=== PATIENT | female | born 1940 | race Hispanic/Latino ===

== ENCOUNTER 2017-07-14 09:06 | Inpatient (IN) | payer OTHER ==
[2017-07-14] MEDS ORDERED: LEVALBUTEROL 1.25 MG/3 ML NEB ONE (10:11)
[2017-07-14 10:19] LABS: Absolute Lymphocytes (CBC) 0.6 K/uL (0.7-4.9); Absolute Monocytes 0.4 K/uL (0.1-1.3); Absolute Neutrophil 4.5 K/uL (1.8-8.0); Basophils % 0.3 % (0-1.3); Eosinophils % 0.5 % (0-4.4); Lymphocytes % 10.8 % (15.3-44.8); MCV 112.4 fL (80-100); MPV 9.8 fL (7.6-11.3); Monocytes % 6.6 % (3.3-12.3); RBC Red Blood Cell Count 3.02 M/uL (3.86-4.86)
[2017-07-14 10:22] LABS: Protime INR 1.06
[2017-07-14 10:31] LABS: Bicarbonate 24 mEq/L (21-31); Glucose Level 137 mg/dL (65-120); Potassium 4.4 mEq/L (3.6-5.0); Sodium Level 139 mEq/L (135-145)
[2017-07-14 10:37] LABS: ALT/SGPT 12 IU/L (10-60); AST/SGOT 17 IU/L (10-42); Albumin 2.8 g/dL (3.2-5.5); Alkaline Phosphatase 107 IU/L (42-121); BUN Blood Urea Nitrogen 61 mg/dL (6-20); Bilirubin Total 2.4 mg/dL (0.3-1.2); Creatine Phosphokinase 17 IU/L (22-269); Protein, Total 6.8 g/dL (6.0-8.3)
[2017-07-14 10:39] LABS: CKMB Creatine Kinase MB 1.5 ng/ml (0.3-4.0)
[2017-07-14 11:00] LABS: Blood Morphology Comment NOTED (NOT SEEN); Macrocytosis 2+; Platelet Estimate DECR; Urine White Blood Cell Casts OK
[2017-07-14 11:22] LABS: Folic Acid, (Folate) 9.4 ng/ml (>5.21)
--- NOTE | 2017-07-14 11:24 | RAD REPORT ---
EXAM DESCRIPTION: RAD - Chest Single View - 07/14/2017 10:43 am CLINICAL HISTORY: Cough, green sputum. COMPARISON: 06/15/2013 FINDINGS: Portable technique limits examination quality. A left pleural effusion is present. Ill-defined opacity left lung base is also likely present, suspic ious for pneumonia. The heart is moderately enlarged in size. Right-sided venous catheter is in the S VC. No displaced fractures. IMPRESSION: Left lung base pleural and parenchymal opacification, likely representing pneumonia.
--- NOTE | 2017-07-14 11:42 | ER ---
Nurse's Notes [facility] Name: Dilia Perez Age: 77 yrs Sex: Female : 1940 Arrival Date: 07/14/2017 Time: 09:12 Bed 16 Private MD: Diagnosis: Pneumonia due to other specified bacteria;Chronic kidney disease (CKD);Urinary tract infection, site not specified Presentation: 07/14 09:31 Presenting complaint: Patient states: Productive cough with green sputum, SOB, hb decreased appetite, and lethargy x 3 weeks. HD T-TH-Sat, last HD was >1 week ago due to illness. Transition of care: patient was not received from another setting of care. Care prior to arrival: None. 09:31 Method Of Arrival: Wheelchair hb 09:31 Acuity: ALPA 3 hb 10:33 Onset of symptoms was June 23, 2017 at 08:00. ae1 Historical: - Allergies: 09:34 No Known Allergies; hb - PMHx: 09:34 HD T-TH-Sat; hb - PSHx: 09:34 Cholecystectomy; hb - Immunization history:: Adult Immunizations up to date. - Social history:: Smoking status: Patient/guardian denies using tobacco. Screenin:34 Abuse screen: Denies threats or abuse. Nutritional screening: No deficits noted. ae1 Tuberculosis screening: No symptoms or risk factors identified. Fall Risk No fall in past 12 months (0 pts). Secondary diagnosis (15 points) weakness. IV access (20 points). Ambulatory Aid- Crutches/Cane/Walker (15 pts). Gait- Weak (10 pts.). Mental Status- Oriented to own ability (0 pts). Assessment: 10:30 General: Appears in no apparent distress. uncomfortable, Behavior is cooperative, ae1 anxious. Pain: Complains of pain in chest Aggravated by cough. Neuro: Level of Consciousness is awake, alert, obeys commands, Oriented to person, place, time, situation. Cardiovascular: Heart tones S1 S2 present Patient's skin is warm and dry. Rhythm is atrial fibrillation with rapid ventricular response. Respiratory: Airway is patent Respiratory effort is even, unlabored, shallow, Respiratory pattern is regular, symmetrical, Breath sounds with crackles bilaterally. Breath sounds with wheezes bilaterally. GI: Abdomen is round distended, Bowel sounds present X 4 quads. Reports nausea, Patient currently denies diarrhea, vomiting. : No signs and/or symptoms were reported regarding the genitourinary system. EENT: wears glasses. Derm: Skin is normal. Musculoskeletal: Reports Generalized weakness. 10:38 Reassessment: radiology at bedside obtaining chest x-ray. ae1 12:00 Reassessment: Patient appears in no apparent distress at this time. Patient and/or ae1 family updated on plan of care and expected duration. Pain level reassessed. Patient states feeling better. Respiratory: Airway is patent Respiratory effort is even, unlabored, Respiratory pattern is regular, symmetrical. 13:54 Reassessment: Patient does not wish to be admitted in the hospital, provider notified, ae1 provider at bedside discussing plan of care. 14:39 Reassessment: Called 2nd floor to call report, desk community youth secretary states receiving nurse is ae1 in a patient room and will call back. Will continue to monitor. 14:50 Reassessment: LAb at bedside obtaining additional blood draw. ae1 14:59 Reassessment: Called 2nd floor to give report, desk community youth secretary states receiving nurse, ae1 charge nurse and doctor are in a patient room and will call back. Will continue to monitor. 16:01 Reassessment: Report called to Matt receiving nurse. ae1 Vital Signs: 09:33 BP 103 / 83; Pulse 90; Resp 22; Temp 98.3; Pulse Ox 98% on R/A; Pain 0/10; hb 10:39 BP 107 / 91; Pulse 137; Resp 19; Pulse Ox 97% on R/A; ae1 12:35 BP 107 / 91; Pulse 93; Resp 19; Pulse Ox 97% on R/A; ae1 14:02 BP 92 / 63; Pulse 129; Resp 23; Pulse Ox 98% ; ae1 ED Course: 09:12 Patient arrived in ED. mr 09:28 Keron Mccallum, AMEENA is Primary Nurse. ae1 09:32 Etienne Keenan PA is PHCP. jr8 09:32 Edwin Boucher MD is Attending Physician. jr8 09:32 Triage completed. hb 09:33 Arm band placed on right wrist. hb 09:45 Inserted saline lock: 24 gauge in right hand, using aseptic technique. Blood collected. ae1 10:23 EKG done, by safety technician. reviewed by Etienne OLIVEIRA. at1 10:33 Placed in gown. Bed in low position. Call light in reach. Side rails up X2. Adult w/ ae1 patient. monitoring and evaluation advisor on. Pulse ox on. NIBP on. Warm blanket given. 10:40 X-ray completed. Portable x-ray completed in exam room. Patient tolerated procedure sw well. 10:42 XRAY Chest (1 view) In Process Unspecified. EDMS 11:41 Latoya Gilmore MD is Hospitalizing Provider. jr8 12:45 Urine Culture Sent. ap3 12:45 Urine Microscopic Only Sent. ap3 16:02 No provider procedures requiring assistance completed. Patient admitted, IV remains in ae1 place. Administered Medications: 10:15 Drug: Xopenex (3) 1.25 mg Route: Inhalation; ae1 12:32 Drug: LevaQUIN 500 mg Volume: 100 ml; Route: IVPB; Infused Over: 60 mins; Site: right ae1 hand; 14:06 Follow up: IV Status: Completed infusion ae1 Outcome: 11:42 Decision to Hospitalize by Provider. jr8 16:02 Admitted to Med/surg accompanied by tech, family with patient, via wheelchair, room ae1 220, with chart, Report called to Matt, receiving nurse. 16:02 Condition: stable 16:02 Instructed on follow up and referral plans. the need for admit, Demonstrated understanding of instructions. 16:10 Patient left the ED. ae1 Signatures: Dispatcher [employer] [facility] Ashley Zhou Etienne Coley PA PA jr8 Danitza messer, automatic dispenser mechanic EKG Tat1 Nallely Arteaga Heather, AMEENA RN Keron Mccallum RN RN ae1 Danitza Bonilla ap3 Corrections: (The following items were deleted from the chart) 09:33 09:31 Presenting complaint: Patient states: Productive cough, SOB, decreased appetite, hb and lethargy x 3 weeks. HD T-TH-Sat, last HD was >1 week ago due to illness hb 14:31 14:07 Reassessment: Per provider, ok to cancel type and screen, labels molder notified via ae1 telephone that TS is cancelled. ae1
--- NOTE | 2017-07-14 11:43 | EDPHYS ---
Physician Documentation [facility] Name: Dilia Perez Age: 77 yrs Sex: Female : 1940 Arrival Date: 07/14/2017 Time: 09:12 Bed 16 Private MD: ED Physician Edwin Boucher HPI: 07/14 10:16 This 77 yrs old Female presents to ER via Wheelchair with complaints of jr8 Congestion, Productive Cough. 10:16 The patient or guardian reports cough, that is intermittent, described as moderate, jr8 with productive sputum, that is green. Onset: The symptoms/episode began/occurred gradually, 3 week(s) ago. Severity of symptoms: At their worst the symptoms were moderate, in the emergency department the symptoms are unchanged. Associated signs and symptoms: Pertinent positives: nausea, fatigue. The patient has not experienced similar symptoms in the past. The patient has not recently seen a physician. Family stated that three weeks ago she had influenza. Since then has continued productive cough. Now not eating well and more fatigued. ESRD with dialysis almost a week ago. Came from [facility] to [place] and needs to establish care . Historical: - Allergies: 09:34 No Known Allergies; hb - PMHx: 09:34 HD T-TH-Sat; hb - PSHx: 09:34 Cholecystectomy; hb - Immunization history:: Adult Immunizations up to date. - Social history:: Smoking status: Patient/guardian denies using tobacco. ROS: 10:16 Eyes: Negative for injury, pain, redness, and discharge, ENT: Negative for injury, jr8 pain, and discharge, Neck: Negative for injury, pain, and swelling, Cardiovascular: Negative for chest pain, palpitations, and edema, Back: Negative for injury and pain, MS/Extremity: Negative for injury and deformity, Skin: Negative for injury, rash, and discoloration, Neuro: Negative for headache, weakness, numbness, tingling, and seizure. 10:16 Respiratory: Positive for cough, with green sputum, shortness of breath. 10:16 Abdomen/GI: Positive for nausea, Negative for abdominal pain, vomiting, diarrhea, constipation, abdominal cramps, abdominal distension, anorexia, dysphagia, hematemesis, black/tarry stool, rectal pain, rectal bleeding, bowel incontinence, flatulence. Exam: 10:16 Eyes: Pupils equal round and reactive to light, extra-ocular motions intact. Lids and jr8 lashes normal. Conjunctiva and sclera are non-icteric and not injected. Cornea within normal limits. Periorbital areas with no swelling, redness, or edema. ENT: Nares patent. No nasal discharge, no septal abnormalities noted. Tympanic membranes are normal and external auditory canals are clear. Oropharynx with no redness, swelling, or masses, exudates, or evidence of obstruction, uvula midline. Mucous membranes moist. Neck: Trachea midline, no thyromegaly or masses palpated, and no cervical lymphadenopathy. Supple, full range of motion without nuchal rigidity, or vertebral point tenderness. No Meningismus. Abdomen/GI: Soft, non-tender, with normal bowel sounds. No distension or tympany. No guarding or rebound. No evidence of tenderness throughout. Back: No spinal tenderness. No costovertebral tenderness. Full range of motion. Skin: Warm, dry with normal turgor. Normal color with no rashes, no lesions, and no evidence of cellulitis. MS/ Extremity: Pulses equal, no cyanosis. Neurovascular intact. Full, normal range of motion. Neuro: Awake and alert, GCS 15, oriented to person, place, time, and situation. Cranial nerves II-XII grossly intact. Motor strength 5/5 in all extremities. Sensory grossly intact. Cerebellar exam normal. Normal gait. 10:16 Cardiovascular: Rate: normal, Rhythm: irregularly irregular, Pulses: Pulses are 2+ in right radial artery and left radial artery. Heart sounds: normal, normal S1and S2, no S3 or S4, no murmur, no rub, no gallop, Edema: 2+ edema to level of left midcalf, left ankle, left foot, right midcalf, right ankle and right foot, JVD: is not appreciated. 10:16 Respiratory: the patient does not display signs of respiratory distress, Respirations: normal, symetrical, no use of accessory muscles, no grunting, no evidence of nasal flaring, no prolonged exhalations, no pursed lip breathing, no retractions, no shallow respirations, no splinting, no tachypnea, Breath sounds: decreased breath sounds, that are mild, are located in both bases. Vital Signs: 09:33 BP 103 / 83; Pulse 90; Resp 22; Temp 98.3; Pulse Ox 98% on R/A; Pain 0/10; hb 10:39 BP 107 / 91; Pulse 137; Resp 19; Pulse Ox 97% on R/A; ae1 12:35 BP 107 / 91; Pulse 93; Resp 19; Pulse Ox 97% on R/A; ae1 14:02 BP 92 / 63; Pulse 129; Resp 23; Pulse Ox 98% ; ae1 MDM: 09:32 Patient medically screened. jr8 11:41 Data reviewed: vital signs, nurses notes, lab test result(s), EKG, radiologic studies, jr8 plain films, and as a result, I will admit patient. Data interpreted: Pulse oximetry: on room air is 97 %. Interpretation: normal. Counseling: I had a detailed discussion with the patient and/or guardian regarding: the historical points, exam findings, and any diagnostic results supporting the discharge/admit diagnosis, lab results, radiology results, the need for further work-up and treatment in the hospital. 07/14 09:54 Order name: Basic Metabolic Panel; Complete Time: 11:31 07/14 09:54 Order name: BNP; Complete Time: 10:42 07/14 09:54 Order name: CBC with Diff; Complete Time: 11:11 07/14 09:54 Order name: Ckmb; Complete Time: 11:31 07/14 09:54 Order name: CPK; Complete Time: 11:31 07/14 09:54 Order name: LFT's; Complete Time: 11:31 07/14 09:54 Order name: Magnesium; Complete Time: 11:31 07/14 09:54 Order name: PT-INR; Complete Time: 10:37 07/14 09:54 Order name: Ptt, Activated; Complete Time: 10:37 07/14 09:54 Order name: Troponin (emerg Dept Use Only); Complete Time: 10:37 07/14 09:54 Order name: Blood Culture Adult (2) 07/14 10:20 Order name: CBC Smear Scan; Complete Time: 11:11 [facility] 07/14 10:40 Order name: LAB Add On 07/14 10:44 Order name: Folic Acid, Serum (Folate); Complete Time: 11:31 [facility] 07/14 09:54 Order name: XRAY Chest (1 view); Complete Time: 11:31 [facility] 07/14 09:54 Order name: EKG; Complete Time: 09:55 07/14 09:54 Order name: Cardiac monitoring; Complete Time: 10: 07/14 09:54 Order name: EKG - Nurse/Tech; Complete Time: 10: [facility] 07/14 09:54 Order name: IV Saline Lock; Complete Time: 10:29 [facility] 07/14 09:54 Order name: Labs collected and sent; Complete Time: 10: [facility] 07/14 09:54 Order name: O2 Per Protocol; Complete Time: 10: [facility] 07/14 09:54 Order name: O2 Sat Monitoring; Complete Time: : [facility] 07/14 09:54 Order name: Urine Dipstick-Ancillary (obtain specimen); Complete Time: 12:35 [facility] 07/14 10:44 Order name: Vitamin B12 Level; Complete Time: 11:31 [facility] 07/14 12:33 Order name: Urine Microscopic Only; Complete Time: 13:09 [facility] 07/14 12:33 Order name: Urine Culture [facility] 07/14 12:37 Order name: Urine Dipstick--Ancillary (enter results); Complete Time: 12:47 ag Administered Medications: 10:15 Drug: Xopenex (3) 1.25 mg Route: Inhalation; ae1 12:32 Drug: LevaQUIN 500 mg Volume: 100 ml; Route: IVPB; Infused Over: 60 mins; Site: right ae1 hand; 14:06 Follow up: IV Status: Completed infusion ae1 Disposition: 17:58 Co-signature as Attending Physician, Edwin Boucher MD. rn Disposition: 07/14/17 11:42 Hospitalization ordered by Latoya Gilmore for Inpatient Admission. Preliminary diagnosis are Pneumonia due to other specified bacteria, Chronic kidney disease (CKD), Urinary tract infection, site not specified. - Bed requested for Telemetry/MedSurg (Inpatient). - Status is Inpatient Admission. ae1 - Condition is Stable. - Problem is new. - Symptoms have improved. UTI on Admission? Yes Signatures: Dispatcher [employer] [facility] Edwin Boucher MD MD rn Roszak, Josh, PA PA jr8 Antoinette Hunter Heather, RN RN hb Keron Mccallum, RN RN ae1
[2017-07-14] MEDS ORDERED: Levofloxacin500mg IV 500 MG/100 ML BAG IV ONE (11:55)
[2017-07-14 12:47] LABS: Urine Blood 1+ (NEG); Urine Glucose TRACE (NEG); Urine Protein 2+ (NEG); Urine Specific Gravity 1.015 (1.005-1.030); Urine pH 5.5 (5.0-7.0)
[2017-07-14 12:58] LABS: Urine Bacteria LOADED /HPF (<20); Urine Culture Reflex Order NOT NEEDED; Urine RBC >50 /HPF (NONE SEEN); Urine White Blood Cell Casts 0-5 /LPF (NONE SEEN)
[2017-07-14] MEDS ORDERED: ACETAMINOPHEN 500 MG TAB PO PRN (13:34)
[2017-07-14] MEDS ORDERED: ONDANSETRON 4 MG (ODT) TAB PO PRN (13:34)
[2017-07-14] MEDS ORDERED: MANNITOL 25% 12.5 GM/50 ML VIAL IV PRN (15:15)
[2017-07-14] MEDS ORDERED: NA CHLORIDE 0.9% 1,000 ML IV PRN (15:15)
[2017-07-14] MEDS ORDERED: ALBUMIN HUMAN 25% 50 ML IV SCH (16:00)
[2017-07-14] MEDS ORDERED: METHYLPREDNISOLONE 125 MG INJ ONE (16:14)
[2017-07-14] MEDS ORDERED: IPRATROPIUM BROM 0.5MG/2.5ML ONE (16:15)
[2017-07-14] MEDS ORDERED: ALBUTEROL 2.5 MG/3 ML NEB SOL ONE (16:15)
[2017-07-14 16:30] LABS: Thyroid Stimulating Hormone 5.79 uIU/mL (0.34-5.60)
--- NOTE | 2017-07-14 16:57 | P.HP ---
Certification for Inpatient Patient admitted to: Inpatient With expected LOS: >2 Midnights Patient will require the following post-hospital care: None Practitioner: I am a practitioner with admitting privileges, knowledge of patient current condition, hospital course, and medical plan of care. Services: Services provided to patient in accordance with Admission requirements found in Title 42 Section 412.3 of the Code of Federal Regulations Patient History Date of Service: 07/14/17 Primary Care Provider: OOT Reason for admission: Fatigue and weakness History of Present Illness: The all this is a 77-year-old female with significant past medical history of hypertension and end-stage renal disease on hemodialysis Thursday who presented to the ED complaining of increased fatigue and weakness for total of 3 weeks. Pt had symptoms of flu 3 weeks ago. Pt states her symptoms got progressively worse where she now has productive cough. It is yellow in color. Pt has not had dialysis since last and states she was unable to go to fatigue and tiredness. Patient at this time denies having any fever chills nausea or vomiting. Aside from the above-mentioned symptoms she does not have a complaints to offer. In the ER patient was found to have a BNP of 13 39 with elevated white count and left shift. X-ray was done which was consistent with bilateral lower lobe opacification consistent with pneumonia. Patient also had elevated creatinine this patient was referred for admission to the hospital for pneumonia and end- stage renal disease. Allergies No Known Allergies Allergy (Unverified 06/16/13 00:09) Home Medications: Furosemide [Lasix] 20 mg PO DAILY 07/14/17 Pantoprazole [Protonix Tab*] 40 mg PO DAILY 07/14/17 Ramelteon [Rozerem] 8 mg PO BEDTIME 07/14/17 - Past Medical/Surgical History Diabetic: No -: UTI -: HTN -: LEIGHA -: HERNIA REPAIR - Social History Alcohol use: No CD- Drugs: No Caffeine use: Yes Review of Systems 10-point ROS is otherwise unremarkable Physical Examination - Vital Signs Temperature: 98.3 F Blood Pressure: 92/63 Pulse: 129 Respirations: 23 - Physical Exam General: Alert, In no apparent distress, Mild distress HEENT: Atraumatic Neck: Supple Respiratory: Normal air movement, Crackles/rales, Rhonchi/gurgles Cardiovascular: Regular rate/rhythm, Normal S1 S2 Gastrointestinal: Normal bowel sounds, Soft and benign, Non-distended, No tenderness Musculoskeletal: No tenderness Integumentary: No rashes Neurological: Normal speech, Normal strength at 5/5 x4 extr, Normal tone Lymphatics: No axilla or inguinal lymphadenopathy - Studies Laboratory Data (last 24 hrs) 07/14/17 09:55: PT 12.5, INR 1.06, APTT 32.6 07/14/17 09:55: WBC 5.5, Hgb 10.9 L, Hct 34.0 L, Plt Count 95 L 07/14/17 09:55: B-Natriuretic Peptide 1339 H 07/14/17 09:55: Sodium 139, Potassium 4.4, BUN 61 H, Creatinine 6.61 H*, Glucose 137 H, Magnesium 2.0, Total Bilirubin 2.4 H, AST 17, ALT 12, Alkaline Phosphatase 107 Assessment and Plan - Problems (Diagnosis) (1) PNA (pneumonia) Current Visit: Yes Status: Acute Plan: PNA on the xray with productive cough -Started on IV abx, Oxygen and fluids at this time -Repeat xray in the AM Qualifiers: Pneumonia type: due to unspecified organism Laterality: bilateral Lung location: unspecified part of lung Qualified Code(s): J18.9 - Pneumonia, unspecified organism (2) Volume overload Current Visit: Yes Status: Acute Plan: Most Likely 2/2 to Missed dialysis -Nephrology Consulted. -Will dialyze pt today -Will F/U post dialysis Qualifiers: Hypervolemia type: other Qualified Code(s): E87.79 - Other fluid overload (3) ESRD (end stage renal disease) Current Visit: Yes Status: Chronic Plan: Usually gets Dialysis , and Thursday in the [place] (4) HTN (hypertension) Current Visit: Yes Status: Chronic Qualifiers: Hypertension type: essential hypertension Qualified Code(s): I10 - Essential (primary) hypertension (5) Congestive heart failure Current Visit: No Status: Chronic Plan: Currently on Dialysis -Will restart home medication as well. (6) Diabetes mellitus type 2 Current Visit: No Status: Chronic Plan: ISS Discharge Plan: Home Plan to discharge in: 48 Hours - Advance Directives Does patient have a Living Will: No Does patient have a Durable POA for Healthcare: No - Code Status/Comfort Care Code Status Assessed: Yes Critical Care: No
[2017-07-14] MEDS ORDERED: PNEUMOCOCCAL VACCINE 0.5 ML IMVAC ONE (18:00)
[2017-07-14] MEDS: RAMELTEON 8 MG PO SCH (21:00)
[2017-07-14] MEDS ORDERED: Levofloxacin 250mg IV 250 MG/50 ML BAG IV SCH (22:00)
--- NOTE | 2017-07-15 03:42 | CON ---
Date of Consultation: 07/14/2017 Additional Consulting Physician: Dr. Gilmore. Reason For Consultation: Elevated BUN and creatinine, over volume, end-stage renal disease. History Of Present Illness: This is a pleasant 77-year-old female, well known to me from previous ad mission with significant past medical history of hypertension, hyperlipidemia, end-stage renal diseas e, on hemodialysis, patient apparently had been coming to visit her daughter to live with them and last dialysis was . The patient missed her Thursday. The patient denied any nausea and vomiting, but complaining of cough and shortness of breath. For that reason, reported to the ER and the ER found to have possible pneumonia and the patient missed her dialysis for that reason, we have been consulted. The patient does not have any fever. No chills. Past Medical History: Include, 1.Hypertension. 2.Hyperlipidemia. Social History: Denies smoking, denies drinking, denies drug abuse. Past Surgical History: Include PermCath placement. Family History: Positive for hypertension. Allergies: NO KNOWN DRUGS ALLERGY. Review of Systems: Head and Neck: No red eye. No ear pain. GI: No nausea, no vomiting. : No polyuria. No dysuria. No hematuria. Still have good urine output. 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 Respiratory: Has shortness of breath. Has cough. Cardiovascular: No chest pain. Neurologic: No weakness. Musculoskeletal: No joint pain. Endocrine: No polydipsia. Physical Examination: Vital Signs: Blood pressure 92/63, pulse of 110, afebrile. Chest: Crackles bilateral base. Heart: S1, S2. Regular. Abdomen: Soft, nontender. Extremities: No edema. Laboratory Data: WBC 5.5, H and H 10.9/34, platelets of 95. Sodium 139, potassium 4.4, bicarb 24, B UN 60, creatinine 6.6, calcium 8.8. Magnesium of 2. Culture still pending. Current Medications: At home include, 1.Pantoprazole. 2.Rozerem. 3.Lasix. Hospital medications include, 1.Levaquin. 2.Lasix. 3.Pantoprazole. Assessment And Plan: 1.End-stage renal disease. We will arrange for dialysis today. We will dialyze on 2 K bath and gio l challenge. 2.Hypertension, controlled. Optimal off all blood pressure medication. We will monitor. 3.Pneumonia. I agreed with the Levaquin. I am going to change the dose to 250 giving the dialysis history and we will follow up. Case discussed with the patient and family by bedside, verbalized und erstanding. Discussed with Dr. Gilmore. Thank you, Dr. Gilmore for allowing us to participate in the care of your patient. COLE Voice ID: [id number] Report ID: [id number]
[2017-07-15 05:06] LABS: Absolute Lymphocytes (CBC) 0.3 K/uL (0.7-4.9); Absolute Monocytes 0.5 K/uL (0.1-1.3); Absolute Neutrophil 2.8 K/uL (1.8-8.0); Basophils % 0.3 % (0-1.3); Eosinophils % 0.9 % (0-4.4); Hematocrit 29.9 % (36.0-45.0); Lymphocytes % 9.2 % (15.3-44.8); MPV 7.8 fL (7.6-11.3); Monocytes % 12.5 % (3.3-12.3); RBC Red Blood Cell Count 2.71 M/uL (3.86-4.86)
[2017-07-15 05:09] LABS: MCV 110.2 fL (80-100)
[2017-07-15 05:30] LABS: Albumin 2.2 g/dL (3.2-5.5); Bilirubin Total 1.8 mg/dL (0.3-1.2); Magnesium 1.7 mg/dL (1.8-2.5); Potassium 4.4 mEq/L (3.6-5.0); Protein, Total 5.6 g/dL (6.0-8.3)
[2017-07-15] MEDS ORDERED: MAGNESIUM SULFATE 1 gm IVPB 1 GM/100 ML BAG IV ONE (06:02)
[2017-07-15] MEDS: PANTOPRAZOLE 40MG TABLET PO SCH (07:30)
--- NOTE | 2017-07-15 08:02 | EKG ---
Test Date: 2017-07-14 Test Time: 10:11:09 Latexer: MALKA MEASUREMENT RESULTS: Intervals: Rate: 125 GA: QRSD: 90 QT: 368 QTc: 531 Reading: P: GA: QRS: -20 T: 113 INTERPRETIVE STATEMENTS: Atrial fibrillation with rapid ventricular response Low voltage QRS Nonspecific ST and T wave abnormality, probably digitalis effect Abnormal ECG Compared to ECG 06/15/2013 03:49:23 Low QRS voltage now present ST (T wave) deviation now present Myocardial infarct finding no longer present Electronically Signed On 07-15-17 08:02:07 CDT by Iban Nina
[2017-07-15] MEDS: FUROSEMIDE 20 MG TABLET PO SCH (08:49)
--- NOTE | 2017-07-15 08:53 | RAD REPORT ---
EXAM DESCRIPTION: RAD - Chest Pa And Lat (2 Views) - 07/15/2017 6:40 am CLINICAL HISTORY: Chest pain, pneumonia COMPARISON: 07/14/2017, 06/15/2013 FINDINGS: Diffuse COPD is present. Small left pleural effusion is noted. The heart is significantly enlarged in size. Right-sided venous catheter tip in the SVC. IMPRESSION: Moderate cardiomegaly with small left pleural effusion. COPD.
[2017-07-15] MEDS ORDERED: EPOETIN ALFA 10,000 UNIT/ML VIAL IV SCH (10:00)
[2017-07-15] MEDS ORDERED: IPRATROPIUM BROM 0.5MG/2.5ML NEB PRN (10:49)
[2017-07-15] MEDS ORDERED: ALBUTEROL 2.5 MG/3 ML NEB SOL NEB PRN (10:49)
--- NOTE | 2017-07-15 10:49 | P.PN ---
Subjective Date of Service: 07/15/17 Primary Care Provider: DUANE Chief Complaint: Fatigue and weakness Patient seen and examined at bedside with RN. Chart reviewed. Case discussed with nephrology. Currently patient has no complaints to offer overnight. Has been feeling well. Had dialysis yesterday. Review of Systems 10-point ROS is otherwise unremarkable Physical Examination - Vital Signs Temperature: 97.5 F Blood Pressure: 92/54 Pulse: 112 Respirations: 16 Pulse Ox (%): 92 - Physical Exam General: Alert, In no apparent distress, Oriented x3 HEENT: Atraumatic, PERRLA, EOMI Neck: Supple, JVD not distended Respiratory: Clear to auscultation bilaterally, Normal air movement Cardiovascular: Regular rate/rhythm, Normal S1 S2 Gastrointestinal: Normal bowel sounds, No tenderness Musculoskeletal: No tenderness Integumentary: No rashes Neurological: Normal speech, Normal tone, Normal affect Lymphatics: No axilla or inguinal lymphadenopathy - Studies Laboratory Data (last 24 hrs) 07/14/17 09:55: Creatinine 6.61 H* Microbiology Data (last 24 hrs): 07/14/17 09:55 Blood - Blood Anaerobic Blood Culture - Final 07/14/17 10:20 Blood - Blood Anaerobic Blood Culture - Final Medications List Reviewed: Yes Assessment & Plan - Problems (Diagnosis) (1) UTI (urinary tract infection) Current Visit: Yes Status: Acute Plan: UA with Numerous Bacteria -Currently on Levaquin. -Will continue till cultures -Culture growing Gram - Rods thus far Qualifiers: Urinary tract infection type: acute cystitis Hematuria presence: without hematuria Qualified Code(s): N30.00 - Acute cystitis without hematuria (2) PNA (pneumonia) Onset Date: 07/15/17 Current Visit: Yes Status: Acute Plan: PNA on the xray with productive cough. Improved markedly today -On IV levaquin -Oxygen and Duonebs -Xray with COPD and chronic changes. -Culture Pending. Qualifiers: Pneumonia type: due to unspecified organism Laterality: bilateral Lung location: unspecified part of lung Qualified Code(s): J18.9 - Pneumonia, unspecified organism (3) Volume overload Onset Date: 07/15/17 Current Visit: Yes Status: Acute Plan: Most Likely 2/2 to Missed dialysis -Nephrology Consulted. -On Dialysis now. -BNP improving. Qualifiers: Hypervolemia type: other Qualified Code(s): E87.79 - Other fluid overload (4) ESRD (end stage renal disease) Onset Date: 07/15/17 Current Visit: Yes Status: Chronic Plan: Usually gets Dialysis and Thursday in the [place] (5) HTN (hypertension) Onset Date: 07/15/17 Current Visit: Yes Status: Chronic Qualifiers: Hypertension type: essential hypertension Qualified Code(s): I10 - Essential (primary) hypertension (6) Congestive heart failure Onset Date: 07/15/17 Current Visit: No Status: Chronic Plan: Currently on Dialysis -Will restart home medication as well. (7) Diabetes mellitus type 2 Onset Date: 07/15/17 Current Visit: No Status: Chronic Plan: ISS
[2017-07-15] MEDS ORDERED: Levofloxacin 750mg IV 750 MG/150 ML BAG IV SCH (12:00)
--- NOTE | 2017-07-15 19:00 | PN ---
Date of Progress Note: 07/15/2017 Subjective: The patient still complaining from cough and shortness of breath status post dialysis. Yesterday tolerated the dialysis. We managed to remove 2 L. The patient had a poor appetite. Physical Examination: Vital Signs: When I saw the patient, blood pressure 92/54, pulse of 111. Chest: Crackles on the base. Heart: S1, S2. Regular. Abdomen: Soft, nontender. Extremities: No edema. Laboratory Data: WBC 3.6, H and H 9.8/29.9, platelet of 60. Sodium 137, potassium 4.4, bicarb 28, B UN 24, creatinine 3.4. Calcium 8.3, phosphorus of 3, magnesium 1.7. TSH 5.7. Medications: Current medications the patient on include: Levaquin 250 daily, albuterol, heparin, Tylenol, Lasix 20 p.o. daily, ipratropium. Assessment And Plan: 1.End-stage renal disease. Currently normal volume. I am going to continue dialysis, TTS. 2.Secondary hyperparathyroidism, stable. Calcium and phosphorus on the goal. We will continue to m onitor. 3.Hypothyroidism. I will start the patient on levothyroxine. 4.Anemia of chronic kidney disease. Start the patient on Epogen. 5.Bronchitis/pneumonia. Continue Levaquin. We will follow up with culture. COLE Voice ID: [id number] Report ID: [id number]
[2017-07-15] MEDS: RAMELTEON 8 MG PO SCH (21:32)
[2017-07-16 05:38] LABS: Absolute Lymphocytes (CBC) 0.5 K/uL (0.7-4.9); Absolute Monocytes 0.3 K/uL (0.1-1.3); Absolute Neutrophil 2.2 K/uL (1.8-8.0); Basophils % 0.5 % (0-1.3); Eosinophils % 0.8 % (0-4.4); Hematocrit 29.5 % (36.0-45.0); Lymphocytes % 15.4 % (15.3-44.8); MCH 36.4 pg (27.0-35.0); MPV 9.2 fL (7.6-11.3); Monocytes % 11.2 % (3.3-12.3)
[2017-07-16 05:40] LABS: MCV 113.1 fL (80-100)
[2017-07-16] MEDS: LEVOTHYROXINE SOD 0.125 MG TAB PO SCH (05:56)
[2017-07-16 06:15] LABS: Albumin 2.2 g/dL (3.2-5.5); Bilirubin Total 1.3 mg/dL (0.3-1.2); Magnesium 2.1 mg/dL (1.8-2.5); Phosphorus 4.2 mg/dL (2.5-4.3); Potassium 4.8 mEq/L (3.6-5.0); Protein, Total 5.3 g/dL (6.0-8.3)
--- NOTE | 2017-07-16 07:25 | RAD REPORT ---
EXAM DESCRIPTION: Jason Pa And Lat (2 Views)07/16/2017 6:47 am CLINICAL HISTORY: Cough COMPARISON: July 15, 2017 FINDINGS: A small left pleural effusion is unchanged. Mild left basilar opacities are stable. The r ight lung appears clear. The heart remains enlarged. A central venous catheter has its tip in the sup erior vena cava IMPRESSION: No change in mild left basilar opacities which may represent pneumonia
[2017-07-16] MEDS ORDERED: Meropenem 500 MG VIAL IV SCH (09:00)
[2017-07-16] MEDS: Meropenem 500 MG in NA CHLORIDE 0.9% 100 ML IV SCH (09:20)
[2017-07-16] MEDS: FUROSEMIDE 20 MG TABLET PO SCH (09:21)
[2017-07-16] MEDS: PANTOPRAZOLE 40MG TABLET PO SCH (09:21)
[2017-07-16 11:55] LABS: HBsAG Nonreactive (Nonreactive)
--- NOTE | 2017-07-16 15:33 | P.PN ---
Subjective Date of Service: 07/16/17 Primary Care Provider: DUANE Chief Complaint: Fatigue and weakness Patient seen and examined at bedside with RN. Chart reviewed. Case discussed with nephrology. Currently patient has no complaints to offer overnight. Has been feeling well. Had dialysis today. Is growing ESBL in the urine. Review of Systems 10-point ROS is otherwise unremarkable Physical Examination - Vital Signs Temperature: 97.0 F Blood Pressure: 91/66 Pulse: 90 Respirations: 18 Pulse Ox (%): 100 - Physical Exam General: Alert, In no apparent distress, Oriented x3 HEENT: Atraumatic, PERRLA, EOMI Neck: Supple, JVD not distended Respiratory: Clear to auscultation bilaterally, Normal air movement Cardiovascular: Regular rate/rhythm, Normal S1 S2 Gastrointestinal: Normal bowel sounds, No tenderness Musculoskeletal: No tenderness Integumentary: No rashes Neurological: Normal speech, Normal tone, Normal affect Lymphatics: No axilla or inguinal lymphadenopathy - Studies Microbiology Data (last 24 hrs): 07/14/17 10:20 Blood - Blood Anaerobic Blood Culture - Final Medications List Reviewed: Yes Assessment & Plan - Problems (Diagnosis) (1) UTI (urinary tract infection) Current Visit: Yes Status: Acute Plan: UA with Numerous Bacteria -Culture + for ESBL now -On meropenem -Central line for IV abx at home. Okay per Nephrology Qualifiers: Urinary tract infection type: acute cystitis Hematuria presence: without hematuria Qualified Code(s): N30.00 - Acute cystitis without hematuria (2) PNA (pneumonia) Onset Date: 07/15/17 Current Visit: Yes Status: Acute Plan: PNA on the xray with productive cough. Improved markedly today -Oxygen and Duonebs -Xray with COPD and chronic changes. -Culture Pending. Qualifiers: Pneumonia type: due to unspecified organism Laterality: bilateral Lung location: unspecified part of lung Qualified Code(s): J18.9 - Pneumonia, unspecified organism (3) Volume overload Onset Date: 07/15/17 Current Visit: Yes Status: Acute Plan: Most Likely 2/2 to Missed dialysis -Nephrology Consulted. -On Dialysis now. -BNP improving. Qualifiers: Hypervolemia type: other Qualified Code(s): E87.79 - Other fluid overload (4) ESRD (end stage renal disease) Onset Date: 07/15/17 Current Visit: Yes Status: Chronic Plan: [place] gets D[place] , [place] (5) HTN (hypertension) Onset Date: 07/15/17 Current Visit: Yes Status: Chronic Qualifiers: Hypertension type: essential hypertension Qualified Code(s): I10 - Essential (primary) hypertension (6) Congestive heart failure Onset Date: 07/15/17 Current Visit: No Status: Chronic Plan: Currently on Dialysis -Will restart home medication as well. (7) Diabetes mellitus type 2 Onset Date: 07/15/17 Current Visit: No Status: Chronic Plan: ISS
[2017-07-16] MEDS ORDERED: DIGOXIN 0.25 MG/ML AMP IV SCH (16:00)
--- NOTE | 2017-07-16 16:34 | PN ---
Date of Progress Note: 07/16/2017 Subjective: The patient's shortness of breath has been subsided significantly. No nausea. No vomit ing. Objective: Vital Signs: When I saw the patient, blood pressure 108/76, pulse of 90, afebrile. Chest: Clear to auscultation. Heart: S1, S2. Regular. Abdomen: Soft. Nontender. Extremity: No edema. Laboratory Data: WBC 3, H and H 9.5/29.5, platelets 67. Sodium 137, potassium 4.8, bicarb 27, BUN 3 2, creatinine 4.6, calcium 8.5, phosphorus 4.2, magnesium 2.1. Current culture growing Klebsiella in the urine and growing ESBL in the blood. Assessment And Plan: 1.End-stage renal disease. Normal volume. We will the patient is going to be scheduled for dialysi s today. We will follow up. 2.Hypertension, controlled, optimal. Continue current medication. 3.Urinary tract infection, Klebsiella. The patient was started on meropenem. The patient is going to need central line. I am okay with that for treatment. 4.Anemia. We will continue FARAZ for the time being. 5.Pneumonia. Continue current antibiotic. COLE Voice ID: [id number] Report ID: [id number]
[2017-07-16] MEDS: RAMELTEON 8 MG PO SCH (20:12)
[2017-07-17] MEDS: LEVOTHYROXINE SOD 0.125 MG TAB PO SCH (05:06)
[2017-07-17 05:31] LABS: Absolute Lymphocytes (CBC) 0.4 K/uL (0.7-4.9); Absolute Monocytes 0.2 K/uL (0.1-1.3); Absolute Neutrophil 1.3 K/uL (1.8-8.0); Basophils % 0.5 % (0-1.3); Eosinophils % 1.2 % (0-4.4); Hematocrit 28.8 % (36.0-45.0); Lymphocytes % 22.1 % (15.3-44.8); MCH 36.2 pg (27.0-35.0); MCV 109.4 fL (80-100); MPV 7.7 fL (7.6-11.3); Monocytes % 12.1 % (3.3-12.3); RBC Red Blood Cell Count 2.63 M/uL (3.86-4.86)
[2017-07-17 06:01] LABS: Albumin 2.3 g/dL (3.2-5.5); Bilirubin Total 1.4 mg/dL (0.3-1.2); Phosphorus 4.1 mg/dL (2.5-4.3); Potassium 4.6 mEq/L (3.6-5.0); Protein, Total 5.6 g/dL (6.0-8.3)
--- NOTE | 2017-07-17 07:31 | RAD REPORT ---
EXAM DESCRIPTION: RAD - Chest Pa And Lat (2 Views) - 07/17/2017 6:43 am CLINICAL HISTORY: Pneumonia COMPARISON: July 16 TECHNIQUE: PA and lateral views of the chest were obtained. FINDINGS: The lungs are fibrotic as a baseline. Left base opacification has not improved since the p rior day study. No progression of the chest findings. Heart size remains upper normal. No vascular engorgement. Dialysis catheter remains in place. No pneumothorax. IMPRESSION: No improvement in the left base opacification since prior day study. Chest exam is stabl e.
[2017-07-17] MEDS: Meropenem 500 MG in NA CHLORIDE 0.9% 100 ML IV SCH (08:56)
[2017-07-17] MEDS: PANTOPRAZOLE 40MG TABLET PO SCH (08:57)
[2017-07-17] MEDS: FUROSEMIDE 20 MG TABLET PO SCH (08:57)
[2017-07-17] MEDS ORDERED: NEPRO SHAKE 237 ML CAN PO SCH (09:00)
[2017-07-17 09:53] VITALS: O2SAT 91
--- NOTE | 2017-07-17 13:10 | ECHO ---
HEIGHT: 5 ft 6 in WEIGHT: 124 lb 3 oz DATE OF STUDY: 07/16/[address]: Evie Jeffrey MD 2-DIMENSIONAL: YES M.MODE: YES DOPPLER: YES COLOR FLOW: YES TDS: NO PORTABLE: NO DEFINITY: NO BUBBLE STUDY: NO DIAGNOSIS: BACTEREMIA, RULE OUT ENDOCARDITIS CARDIAC HISTORY: CATHERIZATION: NO SURGERY: NO PROSTHETIC VALVE: NO PACEMAKER: NO MEASUREMENTS (cm) DIASTOLIC (NORMALS) SYSTOLIC (NORMALS) IVSd 1.1 (0.6-1.2) LA Diam 5.9 (1.9-4.0) LVEF 48% LVIDd 5.6 (3.5-5.7) LVIDs 4.2 (2.0-3.5) %FS 25% LVPWd 1.0 (0.6-1.2) Ao Diam 3.6 (2.0-3.7) 2 DIMENSIONAL ASSESSMENT: RIGHT ATRIUM: THROMBUS LEFT ATRIUM: DILATED RIGHT VENTRICLE: NORMAL LEFT VENTRICLE: NORMAL SIZE TRICUSPID VALVE: NORMAL MITRAL VALVE: MITRAL ANNULAR CALCIFICATION PULMONIC VALVE: NORAML AORTIC VALVE: SCLEROSIS PERICARDIAL EFFUSION: NONE AORTIC ROOT: NORMAL LEFT VENTRICULAR WALL MOTION: MILD GLOBAL HYPOKINESIS. DOPPLER/COLOR FLOW: MILD MITRAL AND TRICUSPID REGURGITATION. COMMENTS: 2.3 cm RIGHT ATRIAL THROMBUS. MILD MITRAL AND TRICUSPID REGURGITATION. MILD GLOBAL HYPOKINESIS. NO EFFUSION. TECHNOLOGIST: Rickey GUSTAFSON
[2017-07-17] MEDS ORDERED: PNEUMOCOCCAL VACCINE 0.5 ML IMVAC ONE (16:00)
[2017-07-17 17:45] VITALS: BP 105/66; TEMP 98.2
--- NOTE | 2017-07-17 18:10 | P.DS ---
Admission Date: 07/14/17 Discharge Date: 07/17/17 Primary Care Provider: OOT Disposition: ROUTINE DISCHARGE Discharge Condition: GOOD Reason for Admission: Fatigue and weakness Consultations: Nephrology Procedures: None - Problems (1) UTI (urinary tract infection) Status: Acute Qualifiers: Urinary tract infection type: acute cystitis Hematuria presence: without hematuria Qualified Code(s): N30.00 - Acute cystitis without hematuria (2) PNA (pneumonia) Onset Date: 07/15/17 Status: Resolved Qualifiers: Pneumonia type: due to unspecified organism Laterality: bilateral Lung location: unspecified part of lung Qualified Code(s): J18.9 - Pneumonia, unspecified organism (3) Volume overload Onset Date: 07/15/17 Status: Resolved Qualifiers: Hypervolemia type: other Qualified Code(s): E87.79 - Other fluid overload (4) ESRD (end stage renal disease) Onset Date: 07/15/17 Status: Chronic (5) HTN (hypertension) Onset Date: 07/15/17 Status: Chronic Qualifiers: Hypertension type: essential hypertension Qualified Code(s): I10 - Essential (primary) hypertension (6) Congestive heart failure Onset Date: 07/15/17 Status: Chronic (7) Diabetes mellitus type 2 Onset Date: 07/15/17 Status: Chronic (8) Right atrial thrombus Status: Acute Brief History of Present Illness: The all this is a 77-year-old female with significant past medical history of hypertension and end-stage renal disease on hemodialysis Thursday who presented to the ED complaining of increased fatigue and weakness for total of 3 weeks. Pt had symptoms of flu 3 weeks ago. Pt states her symptoms got progressively worse where she now has productive cough. It is yellow in color. Pt has not had dialysis since last and states she was unable to go to fatigue and tiredness. Patient at this time denies having any fever chills nausea or vomiting. Aside from the above-mentioned symptoms she does not have a complaints to offer. In the ER patient was found to have a BNP of 13 39 with elevated white count and left shift. X-ray was done which was consistent with bilateral lower lobe opacification consistent with pneumonia. Patient also had elevated creatinine this patient was referred for admission to the hospital for pneumonia and end- stage renal disease. Hospital Course: Overall during the hospital stay patient remained stable The patient was initially admitted to the hospital for fatigue and weakness. Was found to have a urinary tract infection on the UA. Started on IV antibiotics had marked improvement in her symptoms. Patient has a urine culture was positive for the ESBL. Patient was recommended to be started on IV meropenem and has a long-term acute care placement to complete 2 weeks of antibiotics however patient refused and stated that she would like to go home. At that point nephrology was consulted to see if patient can have a central line placed. Nephrology recommended that weekend echocardiogram done before the central line placement. An echocardiogram was done which was consistent with right atrial thrombus and thus patient was started on Eliquis 2.5 mg daily and central line was placed. ID was consulted at that time and recommendation was made to discharge with RAHUL Nolan for her ESBL. Patient also has been following up with [facility] here in the [place] and thus the chair time was arranged for her which was going to be Thursday. Patient's schedule is , and sat, however since pt makes urine and thus was given a prescription of Lasix and after nephrology recommendation was discharged home under stable condition. Patient was to continue taking Invanz for 2 weeks. Home health was arranged to do this. The patient was to go to the [facility] for hemodialysis on Thursday to resume her dialysis session. Patient was to continue taking a eliquis 2.5 mg for her right thrombus and she will need to have her echo repeated in about 1-2 weeks. Patient was asked to follow up with Dr. Spain and the concrete worker outpatient Vital Signs/Physical Exam: Temp Pulse Resp BP Pulse Ox 98.2 F 69 16 105/66 93 07/17/17 16:00 07/17/17 16:00 07/17/17 16:00 07/17/17 16:00 07/17/17 16:00 General: Alert, In no apparent distress HEENT: Atraumatic, PERRLA, EOMI Neck: Supple, JVD not distended Respiratory: Clear to auscultation bilaterally, Normal air movement Cardiovascular: Regular rate/rhythm, Normal S1 S2 Gastrointestinal: Normal bowel sounds, No tenderness Musculoskeletal: No tenderness Integumentary: No rashes Neurological: Normal speech, Normal tone, Normal affect Lymphatics: No axilla or inguinal lymphadenopathy Laboratory Data at Discharge: WBC 2.0 K/uL (4.3-10.9) L D 07/17/17 05:09 Hgb 9.5 g/dL (12.0-15.0) L 07/17/17 05:09 Hct 28.8 % (36.0-45.0) L 07/17/17 05:09 Plt Count 52 K/uL (152-406) L D 07/17/17 05:09 PT 12.5 SECONDS (9.5-12.5) 07/14/17 09:55 INR 1.06 07/14/17 09:55 APTT 32.6 SECONDS (24.3-36.9) 07/14/17 09:55 Sodium 141 mEq/L (135-145) 07/17/17 05:09 Potassium 4.6 mEq/L (3.6-5.0) 07/17/17 05:09 BUN 28 mg/dL (6-20) H 07/17/17 05:09 Creatinine 4.33 mg/dL (0.44-1.00) H 07/17/17 05:09 Glucose 96 mg/dL (65-120) 07/17/17 05:09 Phosphorus 4.1 mg/dL (2.5-4.3) 07/17/17 05:09 Magnesium 2.0 mg/dL (1.8-2.5) 07/17/17 05:09 Total Bilirubin 1.4 mg/dL (0.3-1.2) H 07/17/17 05:09 AST 17 IU/L (10-42) 07/17/17 05:09 ALT 10 IU/L (10-60) 07/17/17 05:09 Alkaline Phosphatase 102 IU/L (42-121) 07/17/17 05:09 Troponin I 0.03 ng/mL (<0.03) 07/16/17 14:45 B-Natriuretic Peptide 899 pg/ml (<=100) H 07/17/17 05:09 Home Medications: Pantoprazole [Protonix Tab*] 40 mg PO DAILY 07/14/17 Ramelteon [Rozerem] 8 mg PO BEDTIME 07/14/17 Apixaban [Eliquis *] 2.5 mg PO DAILY #30 tablet 07/17/17 Ertapenem Na [Invanz] 500 mg IM DAILY #14 vial 07/17/17 Furosemide [Lasix*] 40 mg PO DAILY #30 tab 07/17/17 Levothyroxine [Synthroid*] 0.25 mg PO [id number] #30 tab 07/17/17 New Medications: Apixaban [Eliquis *] 2.5 mg PO DAILY #30 tablet Ertapenem Na [Invanz] 500 mg IM DAILY #14 vial Furosemide [Lasix*] 40 mg PO DAILY #30 tab Levothyroxine [Synthroid*] 0.25 mg PO [id number] #30 tab Patient Discharge Instructions: Please f/u with Dr Jeffrey and PCP in 1 to 2 weeks post discharge. [facility]. Invanz 500mg daily for 14 days. Eliquis 2.5mg daily. Please continue with all other medication as prescribed. You will need to go to dialysis M,W,F Diet: Regular Activity: Ad rivas Followup: Evie Jeffrey MD [ACTIVE - CAN ADMIT] - 1 Week Agusto Miller MD [ACTIVE - CAN ADMIT] - 1 Week
--- NOTE | 2017-07-18 04:32 | PN ---
Date of Progress Note: 07/17/2017 Subjective: The patient doing well. No nausea. No vomiting. No shortness of breath. Physical Examination: Vital Signs: When I saw the patient, blood pressure of 105/66, pulse of 69. Chest: Clear to auscultation. Heart: S1, S2. Regular. Abdomen: Soft, nontender. Extremity: No edema. Laboratory Data: H and H 9.5/28.8. Sodium 141, potassium 4.6, bicarb 30. BUN 28, creatinine 4.3, c alcium 8.2, phosphorus 4.1. Current Medications: Current medications the patient on include; 1.Lovenox. 2.Epogen. 3.Lasix. 4.Levothyroxine. 5.Meropenem. 6.Pantoprazole. Assessment And Plan: 1.End-stage renal disease. Normal volume. We will continue current medication and continue dialysi s. The patient is scheduled for dialysis tomorrow. 2.Hypertension, controlled, optimal. Continue current medication. 3.Anemia. Continue Epogen. 4.Urinary tract infection. Klebsiella oxytoca. We will continue the patient on Invanz. 5.Mural thrombi. Continue Eliquis. Evaluated by Cardiology. Case discussed with the patient and the daughter by bedside, who verbalized understanding. COLE Voice ID: [id number] Report ID: [id number]
[2017-07-18] MEDS ORDERED: APIXABAN 2.5 MG TABLET PO SCH (09:00)
--- NOTE | 2017-07-18 13:42 | CON ---
History Of Present Illness: The patient was admitted to Dr. Gilmore's service on 07/14/2017 for pneumo jose antonio. She has end-stage renal disease on hemodialysis. Apparently, there was a plan to put a central line in her for outpatient antibiotics. An echocardiogram was ordered by Dr. Jeffrey. Prior to th at, that showed a large right atrial thrombus and I was asked to give my opinion in that regard. No cardiac symptoms reported. Past Medical History: As stated above. She is also status post cholecystectomy. Social History: Negative. Family History: Negative. Review of Systems: Noncontributory. Medications: Her medications are listed by admitting physician, Dr. Gilmore. Physical Examination: Vital Signs: Her last physical examination showed a blood pressure 105/66 with a pulse of 69, respir atory rate of 16, 98.2 temperature. She has chronic atrial fibrillation. Her I's and O's were adequ ate. HEENT: Negative. Neck: Supple. No bruit. Chest: Clear. Cardiac: Atrial fibrillation. No murmurs, gallops, or rubs. Abdomen: Benign. Extremities: Reveal no clubbing, cyanosis, or edema. Laboratory Data: Her creatinine was 4.3, hemoglobin 9.5. Her white count was 2000. Her BNP was 899 . Troponin is negative. Chest x-ray showed small pleural effusion with moderate cardiomegaly. Echo cardiogram showed ejection fraction 48% with normal left ventricular size, mitral annular calcificati on, aortic sclerosis, and a 2.3 cm right atrial thrombus that was mobile. Impression And Plan: 1.Chronic atrial fibrillation. 2.Right atrial thrombus. 3.End-stage renal disease, on hemodialysis. 4.Pneumonia. I suggest that we do not put a central line with a right atrial thrombus. I suggest maybe given the antibiotics when she goes for dialysis. She should definitely be on anticoagulation considering her atrial fibrillation and right atrial thrombus. Eliquis would be most adequate. I will discuss the c ase further with Dr. Gilmore and Dr. Jeffrey. HAMMAD/YONG Voice ID: [id number] Report ID: [id number]
--- NOTE | 2017-07-19 22:50 | EKG ---
Test Date: 2017-07-16 Test Time: 14:41:18 Machine Shop Supervisor: MALKA MEASUREMENT RESULTS: Intervals: Rate: 124 MN: QRSD: 94 QT: 362 QTc: 520 [place]: P: MN: QRS: -44 T: 152 INTERPRETIVE STATEMENTS: Atrial fibrillation with rapid ventricular response with premature ventricular or aberrantly conducted complexes Left axis deviation Nonspecific ST and T wave abnormality, probably digitalis effect Abnormal ECG Compared to ECG 07/14/2017 10:11:09 Ventricular premature complex(es) now present Left-axis deviation now present ST (T wave) deviation still present Electronically Signed On 07-19-17 22:49:42 CDT by Iban Nina
== END 2017-07-17 16:48 | disposition home health service (06) | DRG 193 ==
LOC: ER 09:06 → ERHOLD 11:42 → 2ND 16:04
PROVIDERS: ADMIT Physician Assistant; ATTEND Family Medicine
DX: J18.9 Pneumonia, unspecified organism (principal); N18.6 End stage renal disease; I13.2 Hypertensive heart and chronic kidney disease with heart failure and with stage 5 chronic kidney disease, or end stage renal disease; N39.0 Urinary tract infection, site not specified; E11.22 Type 2 diabetes mellitus with diabetic chronic kidney disease; I50.9 Heart failure, unspecified; Z99.2 Dependence on renal dialysis; B96.1 Klebsiella pneumoniae [K. pneumoniae] as the cause of diseases classified elsewhere; Z16.12 Extended spectrum beta lactamase (ESBL) resistance; I51.3 Intracardiac thrombosis, not elsewhere classified; D63.1 Anemia in chronic kidney disease; E03.9 Hypothyroidism, unspecified; Z23 Encounter for immunization
CPT/HCPCS: 36415; 71045; 71046; 80048; 80053; 80069; 80076; 81003; 81015; 82550; 82553; 82607; 82746; 83735; 83880; 84100; 84439; 84443; 84484; 85025; 85610; 85730; 86317; 86704; 86706; 87040; 87070; 87077; 87086; 87088; 87186; 87205; 87340; 90670; 90935; 93005; 93306; 94760; 96365; 96366; 99285; G0009; J1160; J2930; J3475; Q4081

== ENCOUNTER 2017-08-12 11:01 | Observation (INO) | payer OTHER ==
--- OUTSIDE RECORDS SUMMARY | 2017-08-12 11:03 | XMS REPORT ---
:1940 Author Organization e[employer] Care Team Providers Name Role Phone Gilmore, [facility] Provider Role Unavailable Allergies, Adverse Reactions, Alerts Substance Reaction Event Type N.K.D.A. Info Not Available Non Drug Allergy Problems Problem Type Condition Code Onset Dates Condition Status Assessment End stage renal disease N18.6 Active Problem Thrombus of right atrial appendage I51.3 Active without antecedent myocardial infarction Assessment Thrombus of right atrial appendage I51.3 Active without antecedent myocardial infarction Problem End stage renal disease N18.6 Active Problem Dependence on renal dialysis Z99.2 Active Problem HTN (hypertension), benign I10 Active Problem Systolic congestive heart failure, I50.20 Active unspecified HF chronicity Problem Controlled type 2 diabetes mellitus E11.9 Active without complication, unspecified whether half-way insulin use Problem GERD without esophagitis K21.9 Active Problem Hypothyroidism, unspecified type E03.9 Active Assessment Controlled type 2 diabetes mellitus E11.9 Active without complication, unspecified whether half-way insulin use Assessment HTN (hypertension), benign I10 Active Assessment GERD without esophagitis K21.9 Active Assessment Hypothyroidism, unspecified type E03.9 Active Assessment Systolic congestive heart failure, I50.20 Active unspecified HF chronicity Assessment Dependence on renal dialysis Z99.2 Active Medications Medication Code Code Instructions Start End Status Dosage System Date Date Eliquis [facility] 34236875749 2.5 MG Orally Active 1 tab once a day Furosemide [facility] 01329287699 40 MG Orally Active 1 tablet Once a day Levothyroxine [facility] [id number] 125 MCG Orally Active 2 tablet Sodium Once a day on an empty stomach in the morning Pantoprazole [facility] 82448347961 40 MG Orally Active 1 tablet Sodium Once a day Results No Known Results Summary Purpose eClinicalWorks Submission
--- OUTSIDE RECORDS SUMMARY | 2017-08-12 11:03 | XMS REPORT ---
:1940 Author Organization e[employer] Care Team Providers Name Role Phone Gilmore, [facility] Provider Role Unavailable Allergies No Known Allergies Problems Problem Type Condition Code Onset Dates Condition Status Problem Thrombus of right atrial appendage I51.3 Active without antecedent myocardial infarction Problem End stage renal disease N18.6 Active Problem Dependence on renal dialysis Z99.2 Active Problem HTN (hypertension), benign I10 Active Problem Systolic congestive heart failure, I50.20 Active unspecified HF chronicity Problem Controlled type 2 diabetes mellitus E11.9 Active without complication, unspecified whether exterminator insulin use Problem GERD without esophagitis K21.9 Active Problem Hypothyroidism, unspecified type E03.9 Active Medications No Known Medications Results No Known Results Summary Purpose eClinicalWorks Submission
[2017-08-12 12:12] LABS: Protime INR 1.31
[2017-08-12] MEDS ORDERED: NA CHLORIDE 0.9% 250 ML ONE ×2 (12:20→17:10)
[2017-08-12 12:21] LABS: Absolute Lymphocytes (CBC) 0.8 K/uL (0.7-4.9); Absolute Monocytes 0.3 K/uL (0.1-1.3); Absolute Neutrophil 3.5 K/uL (1.8-8.0); Basophils % 0.8 % (0-1.3); Eosinophils % 2.3 % (0-4.4); Hematocrit 30.4 % (36.0-45.0); Lymphocytes % 16.2 % (15.3-44.8); MCH 35.2 pg (27.0-35.0); MPV 8.4 fL (7.6-11.3); Monocytes % 6.6 % (3.3-12.3); RBC Red Blood Cell Count 2.82 M/uL (3.86-4.86)
[2017-08-12 12:25] LABS: Albumin 2.5 g/dL (3.2-5.5); Bilirubin Total 0.9 mg/dL (0.3-1.2)
[2017-08-12 12:28] LABS: Potassium 2.8 mEq/L (3.6-5.0)
[2017-08-12 12:59] LABS: Platelet Estimate DECR; Urine White Blood Cell Casts OK
[2017-08-12 13:00] LABS: Blood Morphology Comment NOTED (NOT SEEN); Burr Cells 2+; Macrocytosis 1+
--- NOTE | 2017-08-12 14:47 | EDPHYS ---
Physician Documentation [facility] Name: Dilia Perez Age: 77 yrs Sex: Female : 1940 Arrival Date: 08/12/2017 Time: 11:02 Bed 4 Private MD: ED Physician Antonio Mast HPI: 08/12 12:00 This 77 yrs old Female presents to ER via Wheelchair with complaints of MISSED pm1 DIALYSIS. 12:00 The patient has not recently seen a physician. Patient presenting to the ER with pm1 complaints of missing dialysis for the past 9 days. Patient without any complaints. No chest pain, SOB, or edema. Historical: - Allergies: 11:18 No Known Allergies; ch - Home Meds: 12:18 Lasix 40 mg Oral tab [Active]; Eliquis 2.5 mg oral tab [Active]; reflux med [Active]; sv - PMHx: 11:18 Dialysis; MWF; ch - PSHx: 11:18 dialysis port R chest wall.; ch 12:18 Cholecystectomy; sv - Immunization history:: Adult Immunizations unknown. - Social history:: Smoking status: Patient/guardian denies using tobacco. ROS: 12:00 Constitutional: Negative for fever, chills, and weight loss, Eyes: Negative for injury, pm1 pain, redness, and discharge, ENT: Negative for injury, pain, and discharge, Neck: Negative for injury, pain, and swelling, Cardiovascular: Negative for chest pain, palpitations, and edema, Respiratory: Negative for shortness of breath, cough, wheezing, and pleuritic chest pain, Abdomen/GI: Negative for abdominal pain, nausea, vomiting, diarrhea, and constipation, Back: Negative for injury and pain, : Negative for injury, bleeding, discharge, and swelling, MS/Extremity: Negative for injury and deformity, Skin: Negative for injury, rash, and discoloration, Neuro: Negative for headache, weakness, numbness, tingling, and seizure. Exam: 12:00 Constitutional: This is a well developed, well nourished patient who is awake, alert, pm1 and in no acute distress. Head/Face: Normocephalic, atraumatic. Eyes: Pupils equal round and reactive to light, extra-ocular motions intact. Lids and lashes normal. Conjunctiva and sclera are non-icteric and not injected. Cornea within normal limits. Periorbital areas with no swelling, redness, or edema. ENT: Nares patent. No nasal discharge, no septal abnormalities noted. Tympanic membranes are normal and external auditory canals are clear. Oropharynx with no redness, swelling, or masses, exudates, or evidence of obstruction, uvula midline. Mucous membranes moist. Neck: Trachea midline, no thyromegaly or masses palpated, and no cervical lymphadenopathy. Supple, full range of motion without nuchal rigidity, or vertebral point tenderness. No Meningismus. Chest/axilla: Normal chest wall appearance and motion. Nontender with no deformity. No lesions are appreciated. Cardiovascular: Regular rate and rhythm with a normal S1 and S2. No gallops, murmurs, or rubs. Normal PMI, no JVD. No pulse deficits. 12:00 Abdomen/GI: Soft, non-tender, with normal bowel sounds. No distension or tympany. No guarding or rebound. No evidence of tenderness throughout. Back: No spinal tenderness. No costovertebral tenderness. Full range of motion. Skin: Warm, dry with normal turgor. Normal color with no rashes, no lesions, and no evidence of cellulitis. MS/ Extremity: Pulses equal, no cyanosis. Neurovascular intact. Full, normal range of motion. 12:00 Cardiovascular: hypotensive. 12:00 Neuro: Orientation: is normal, Mentation: is normal, Motor: moves all fours. Vital Signs: 11:18 BP 72 / 49; Pulse 56; Resp 16; Temp 99(O); Pulse Ox 100% on R/A; Weight 52.62 kg; Height 5 ft. 3 in. (160.02 cm); Pain 0/10; 11:30 BP 86 / 60; Pulse 89 MON; Resp 12; Pulse Ox 99% ; sv 12:14 BP 81 / 57; Pulse 87 MON; Resp 14; Pulse Ox 97% on R/A; sv 13:00 BP 89 / 63; Pulse 84; Resp 18; Pulse Ox 97% on R/A; dm5 13:30 BP 92 / 61; Pulse 82 MON; Resp 17; Pulse Ox 100% ; dm5 14:30 BP 91 / 65; Pulse 91; Resp 14; Pulse Ox 100% ; sv 15:00 BP 90 / 78; Pulse 92 MON; Resp 22; Pulse Ox 99% on R/A; sv 16:23 BP 97 / 69; Pulse 101; Resp 20; Pulse Ox 97% on R/A; sv 17:50 BP 98 / 66; Pulse 99; Resp 16; Pulse Ox 98% on R/A; sv 11:18 Body Mass Index 20.55 (52.62 kg, 160.02 cm) ch 11:30 A fib sv 12:14 A fib sv 13:30 A fib dm5 15:00 A fib sv MDM: 11:36 Patient medically screened. pm1 14:40 Data reviewed: vital signs. Data interpreted: Pulse oximetry: on room air is 100 %. pm1 Interpretation: normal. 14:45 Counseling: I had a detailed discussion with the patient and/or guardian regarding: the pm1 historical points, exam findings, and any diagnostic results supporting the discharge/admit diagnosis, lab results, radiology results, the need for further work-up and treatment in the hospital. 16:30 Physician consultation: Evie Jeffrey MD was contacted at 16:30, regarding patient's pm1 condition, and will see patient tomorrow, Patient does not want to be admitted to the hospital. For patient to be restarted on dialysis, patient will need to come tot he office tomorrow on outpatient basis to start process for dialysis treatment. Patient had stated to the dialysis center that [place] and would start her dialysis treatment there. 08/12 11:41 Order name: CBC with Diff; Complete Time: 13:03 pm1 08/12 11:41 Order name: CMP; Complete Time: 12:51 pm1 08/12 11:41 Order name: PT-INR; Complete Time: 12:17 pm1 08/12 11:41 Order name: Ptt, Activated; Complete Time: 12:17 pm1 08/12 12:22 Order name: CBC Smear Scan; Complete Time: 13:03 EDMS 08/12 16:21 Order name: Urine Microscopic Only pm1 08/12 11:58 Order name: EKG; Complete Time: 11:59 sv 08/12 13:54 Order name: Chest Single View XRAY; Complete Time: 16:21 pm1 08/12 16:37 Order name: Urine Microscopic Only; Complete Time: 06:28 EDMS 08/12 17:13 Order name: Urine Dipstick--Ancillary (enter results) bd 08/12 17:35 Order name: Urine Dipstick-Ancillary; Complete Time: 06:28 EDMS 08/12 11:41 Order name: IV Saline Lock; Complete Time: 11:56 pm1 08/12 11:58 Order name: EKG - Nurse/Tech; Complete Time: 12:25 sv Administered Medications: 12:25 Drug: NS 0.9% 250 ml Route: IV; Rate: bolus; Site: right antecubital; sv 13:20 Follow up: Response: No adverse reaction; IV Status: Completed infusion; IV Intake: dm5 250ml 17:00 Drug: NS 0.9% 250 ml Route: IV; Rate: bolus; Site: right antecubital; dm5 17:49 Follow up: Response: No adverse reaction; IV Status: Completed infusion; IV Intake: sv 250ml 17:15 Drug: Potassium Chloride 20 mEq Route: PO; dm5 17:48 Follow up: Response: No adverse reaction sv Disposition: 22:34 Co-signature as Attending Physician, Antonio Mast MD I agree with the assessment and kdr plan of care. Disposition: 08/12/17 16:47 Discharged to Home. Impression: Hypokalemia, Hypotension. - Condition is Stable. - Discharge Instructions: Hypotension, Hypokalemia. - Medication Reconciliation Form, Thank You Letter, Antibiotic Education form. - Follow up: Emergency Department; When: As needed; Reason: Worsening of condition. Follow up: Evie Jeffrey MD; When: Tomorrow; Reason: Recheck today's complaints, Continuance of care, Re-evaluation by your physician. - Problem is new. - Symptoms have improved. Signatures: Dispatcher [employer] EDAK María Elena Dolan RN RN ch Markwardt, Deana, RN RN dm5 Lillian Damian RN RN sv Rittger, Kevin, MD MD kdr Marinas, Patrick, NP NEWBORN HEARING SCREENER pm1 Corrections: (The following items were deleted from the chart) 12:18 11:18 Home Meds: unknown; [facility] 16:45 14:46 Hospitalization Ordered by Henrique Montero DO for Observation. Preliminary pm1 diagnosis is Hypotension; Hypokalemia. Bed requested for Telemetry/MedSurg (observation). Status is Observation. Condition is Stable. Problem is new. Symptoms have improved. UTI on Admission? No. pm1 17:16 16:47 08/12/2017 16:47 Discharged to Home. Impression: Hypokalemia; Hypotension. pm1 Condition is Stable. Forms are Medication Reconciliation Form, Thank You Letter, Antibiotic Education, Prescription Opioid Use. Follow up: Emergency Department; When: As needed; Reason: Worsening of condition. Follow up: Evie Jeffrey; When: 1 - 2 days; Reason: Recheck today's complaints, Continuance of care, Re-evaluation by your physician. Problem is new. Symptoms have improved. pm1 17:50 17:16 08/12/2017 16:47 Discharged to Home. Impression: Hypokalemia; Hypotension. sv Condition is Stable. Discharge Instructions: Hypotension, Hypokalemia. Forms are Medication Reconciliation Form, Thank You Letter, Antibiotic Education. Follow up: Emergency Department; When: As needed; Reason: Worsening of condition. Follow up: Evie Jeffrey; When: Tomorrow; Reason: Recheck today's complaints, Continuance of care, Re-evaluation by your physician. Problem is new. Symptoms have improved. pm1
--- NOTE | 2017-08-12 14:47 | ER ---
Nurse's Notes [facility] Name: Dilia Perez Age: 77 yrs Sex: Female : 1940 Arrival Date: 08/12/2017 Time: 11:02 Bed 4 Private MD: Diagnosis: Hypokalemia;Hypotension Presentation: 08/12 11:14 Presenting complaint: Child states: this hospital only wrote for her to get dialysis ch for a month. we went to [facility] to get her dialysis today and they said they dont have an order to give her dialysis, and to come to the er. she needs her dialysis today. pt last had dialysis on august 05. Transition of care: patient was not received from another setting of care. Onset of symptoms was August 05, 2017. Initial Sepsis Screen: Does the patient meet any 2 criteria? No. Patient's initial sepsis screen is negative. Does the patient have a suspected source of infection? No. Patient's initial sepsis screen is negative. Care prior to arrival: None. 11:14 Method Of Arrival: Wheelchair 11:14 Acuity: ALPA 2 Triage Assessment: 11:18 General: Appears in no apparent distress. uncomfortable. ch Historical: - Allergies: 11:18 No Known Allergies; ch - Home Meds: 12:18 Lasix 40 mg Oral tab [Active]; Eliquis 2.5 mg oral tab [Active]; reflux med [Active]; sv - PMHx: 11:18 Dialysis; MWF; ch - PSHx: 11:18 dialysis port R chest wall.; ch 12:18 Cholecystectomy; sv - Immunization history:: Adult Immunizations unknown. - Social history:: Smoking status: Patient/guardian denies using tobacco. Screenin:45 Abuse screen: Denies threats or abuse. Denies injuries from another. Nutritional sv screening: No deficits noted. Tuberculosis screening: No symptoms or risk factors identified. Fall Risk None identified. Assessment: 11:35 General: Appears in no apparent distress. comfortable, malnourished, Behavior is calm, sv cooperative, appropriate for age. Pain: Denies pain. Neuro: Level of Consciousness is awake, alert, obeys commands, Oriented to person, place, time, situation, Moves all extremities. Speech is normal. Cardiovascular: Patient's skin is warm and dry. Pulses are 3+ in right radial artery and left radial artery Dialysis shunt: in the anterior aspect of right upper chest, no dressing over site.. Respiratory: Respiratory effort is even, unlabored, Respiratory pattern is regular, symmetrical. GI: Abdomen is flat, Parent/caregiver reports the patient having recent weight loss, pt has no appetite. Derm: Skin is normal. Musculoskeletal: Range of motion: intact in all extremities. 12:25 Reassessment: Patient appears in no apparent distress at this time. Patient and/or sv family updated on plan of care and expected duration. Pain level reassessed. Patient is alert, oriented x 3, equal unlabored respirations, skin warm/dry/pink. 14:30 Reassessment: Patient appears in no apparent distress at this time. Patient and/or sv family updated on plan of care and expected duration. Pain level reassessed. Patient is alert, oriented x 3, equal unlabored respirations, skin warm/dry/pink. 17:49 Reassessment: Patient appears in no apparent distress at this time. Patient and/or sv family updated on plan of care and expected duration. Pain level reassessed. Patient is alert, oriented x 3, equal unlabored respirations, skin warm/dry/pink. Vital Signs: 11:18 BP 72 / 49; Pulse 56; Resp 16; Temp 99(O); Pulse Ox 100% on R/A; Weight 52.62 kg; ch Height 5 ft. 3 in. (160.02 cm); Pain 0/10; 11:30 BP 86 / 60; Pulse 89 MON; Resp 12; Pulse Ox 99% ; sv 12:14 BP 81 / 57; Pulse 87 MON; Resp 14; Pulse Ox 97% on R/A; sv 13:00 BP 89 / 63; Pulse 84; Resp 18; Pulse Ox 97% on R/A; dm5 13:30 BP 92 / 61; Pulse 82 MON; Resp 17; Pulse Ox 100% ; dm5 14:30 BP 91 / 65; Pulse 91; Resp 14; Pulse Ox 100% ; sv 15:00 BP 90 / 78; Pulse 92 MON; Resp 22; Pulse Ox 99% on R/A; sv 16:23 BP 97 / 69; Pulse 101; Resp 20; Pulse Ox 97% on R/A; sv 17:50 BP 98 / 66; Pulse 99; Resp 16; Pulse Ox 98% on R/A; sv 11:18 Body Mass Index 20.55 (52.62 kg, 160.02 cm) ch 11:30 A fib sv 12:14 A fib sv 13:30 A fib dm5 15:00 A fib sv ED Course: 11:02 Patient arrived in ED. sb2 11:16 Triage completed. ch 11:18 Arm band placed on left wrist. Patient placed in an exam room, on a stretcher. ch 11:21 Sarkis Villalpando NP is PHCP. pm1 11:21 Antonio Mast MD is Attending Physician. pm1 11:45 Patient has correct armband on for positive identification. Placed in gown. Bed in low sv position. Call light in reach. Side rails up X 1. Adult w/ patient. hospital monitor on. Pulse ox on. NIBP on. Door closed. Head of bed elevated. 11:45 Initial lab(s) drawn, by me, sent to lab. Inserted saline lock: 20 gauge in right sv antecubital area, using aseptic technique. Blood collected. Flushed right antecubital with 5 ml normal saline. 11:55 Lillian Damian, AMEENA is Primary Nurse. sv 11:57 Dressings: Sterile dressing applied to pt's right chest wall Deacon. Pt did not have a sv dressing on the site. Pt's daughters stated that the dialysis center never put one on. 12:30 EKG done, by cytogenetics technologist. reviewed by Sarkis Villalpando NP. at1 14:43 X-ray completed. Portable x-ray completed in exam room. Patient tolerated procedure sw well. 14:46 Henrique Montero DO is Hospitalizing Provider. pm1 15:09 Chest Single View XRAY In Process Unspecified. EDMS 16:46 Evie Jeffrey MD is Referral Physician. pm1 17:06 Urine Microscopic Only Sent. aa5 17:49 No provider procedures requiring assistance completed. IV discontinued, intact, sv bleeding controlled, No redness/swelling at site. Pressure dressing applied. Administered Medications: 12:25 Drug: NS 0.9% 250 ml Route: IV; Rate: bolus; Site: right antecubital; sv 13:20 Follow up: Response: No adverse reaction; IV Status: Completed infusion; IV Intake: dm5 250ml 17:00 Drug: NS 0.9% 250 ml Route: IV; Rate: bolus; Site: right antecubital; dm5 17:49 Follow up: Response: No adverse reaction; IV Status: Completed infusion; IV Intake: sv 250ml 17:15 Drug: Potassium Chloride 20 mEq Route: PO; dm5 17:48 Follow up: Response: No adverse reaction sv Intake: 13:20 IV: 250ml; Total: 250ml. dm5 17:49 IV: 250ml; Total: 500ml. sv Outcome: 14:46 Decision to Hospitalize by Provider. pm1 16:47 Discharge ordered by MD. pm1 17:50 Patient left the ED. sv 17:50 Discharged to home via wheelchair, with family. sv 17:50 Condition: stable 17:50 Discharge instructions given to patient, family, Instructed on discharge instructions, follow up and referral plans. Demonstrated understanding of instructions, follow-up care. Signatures: Dispatcher [employer] EDMS María Elena Dolan RN RN Candis Middleton RN RN dm5 Lillian Damian RN RN Asya Alvarado RN RN aa5 Danitza messer, glassie EKG Tat1 Nallely Arteaga Patrick, NP TEST ANALYST pm1 Patricia Paredes2 Corrections: (The following items were deleted from the chart) 12:18 11:18 Home Meds: unknown; [facility]
--- NOTE | 2017-08-12 15:49 | RAD REPORT ---
EXAM DESCRIPTION: RAD - Chest Single View - 08/12/2017 3:10 pm CLINICAL HISTORY: Shortness of breath, missed dialysis COMPARISON: June 2017 TECHNIQUE: AP portable chest image was obtained 1452 hours . FINDINGS: No peripheral mass or consolidation. No diffuse edema pattern seen. Patient has interstiti al fibrotic change. Cardiac silhouette is enlarged similar to the comparison. Pulmonary artery enlarg ement is present. No measurable pleural effusion and no pneumothorax. No gross bony abnormality seen. No acute aortic finding suspected. Double-lumen dialysis catheter is in place. IMPRESSION: Fibrotic lung change similar to comparison. No infiltrate or edema. Cardiomegaly and enlarged pulmonary arteries. Correlation is needed with any pulmonary artery hyperte nsion findings. This is not a new presentation.
--- NOTE | 2017-08-12 15:49 | EKG ---
Test Date: 2017-08-12 Test Time: 12:04:18 Tray Line Supervisor: MALKA MEASUREMENT RESULTS: Intervals: Rate: 84 SD: QRSD: 102 QT: 336 QTc: 397 Miller: P: SD: QRS: -25 T: 171 INTERPRETIVE STATEMENTS: Atrial fibrillation with premature ventricular or aberrantly conducted complexes Low voltage QRS Cannot rule out Anterior infarct, age undetermined non specific ST and T abnormality Abnormal ECG Compared to ECG 07/16/2017 14:41:18 Low QRS voltage now present Left-axis deviation no longer present Electronically Signed On 08-12-17 15:49:00 CDT by Iban Nina
[2017-08-12 16:37] LABS: Urine Bacteria 20-50 /HPF (<20); Urine Culture Reflex Order REFLEXED; Urine Mucus 2+ /HPF (NONE SEEN); Urine RBC <5 /HPF (NONE SEEN)
[2017-08-12] MEDS ORDERED: POTASSIUM CL SA 10 MEQ TAB PO ONE (17:10)
[2017-08-12 17:35] LABS: Urine Blood 1+ (NEG); Urine Glucose TRACE (NEG); Urine Protein 1+ (NEG); Urine pH 5.5 (5.0-7.0)
[2017-08-12 17:55] VITALS: TEMP 99
[2017-08-12 18:04] VITALS: BP 98/66; O2SAT 98
== END 2017-08-12 17:50 | disposition hospice, home (50) ==
LOC: ER 11:01 → ERHOLD 14:46
PROVIDERS: ADMIT Family Medicine; ATTEND Family Medicine
DX: E87.6 Hypokalemia (principal); I95.9 Hypotension, unspecified
CPT/HCPCS: 36415; 71045; 80053; 81003; 81015; 85025; 85610; 85730; 87077; 87086; 87088; 87186; 93005; 96360; 96361; 96365; 96366; 99285

== ENCOUNTER 2017-11-26 09:36 | Observation (INO) | payer OTHER ==
--- OUTSIDE RECORDS SUMMARY | 2017-11-26 09:43 | XMS REPORT ---
:1940 Author Organization [employer] Care Team Providers Name Role Phone [place], [facility] Provider Role Unavailable Allergies, Adverse [...] mellitus E11.9 Active without complication, unspecified whether long-term insulin use Problem GERD without esophagitis K21.9 Active Problem Hypothyroidism, unspecified type E03.9 Active Assessment Controlled type 2 diabetes mellitus E11.9 Active without complication, unspecified whether long-term insulin use Assessment HTN (hypertension), benign I10 Active Assessment GERD without esophagitis K21.9 Active Assessment Hypothyroidism, unspecified type E03.9 Active Assessment Systolic congestive heart failure, I50.20 Active unspecified HF chronicity Assessment Dependence on renal dialysis Z99.2 Active Medications Medication Code Code Instructions Start End Status Dosage System Date Date Eliquis [facility] 31321958728 2.5 MG Orally Active 1 tab once a day Furosemide [facility] 77366905299 40 MG Orally Active 1 tablet Once a day Levothyroxine [facility] 12590802276 125 MCG Orally Active 2 tablet Sodium Once a day on an empty stomach in the morning Pantoprazole [facility] 64990825996 40 MG Orally Active 1 tablet Sodium Once a day Results No Known Results Summary Purpose [employer] Submission
--- OUTSIDE RECORDS SUMMARY | 2017-11-26 09:43 | XMS REPORT ---
:1940 Author Organization [employer] Care Team Providers Name Role Phone Gilmore, [facility] Provider Role Unavailable Allergies No Known Allergies [...] E11.9 Active without complication, unspecified whether exterminator helper insulin use Problem GERD without esophagitis K21.9 Active Problem Hypothyroidism, unspecified type E03.9 Active Medications No Known Medications Results No Known Results Summary Purpose [employer] Submission
[2017-11-26 12:07] LABS: Absolute Lymphocytes (CBC) 0.8 K/uL (0.7-4.9); Absolute Monocytes 0.5 K/uL (0.1-1.3); Absolute Neutrophil 7.5 K/uL (1.8-8.0); Basophils % 0.1 % (0-1.3); Eosinophils % 0.8 % (0-4.4); Hematocrit 28.7 % (36.0-45.0); Lymphocytes % 8.6 % (15.3-44.8); MCH 34.3 pg (27.0-35.0); MCV 103.2 fL (80-100); MPV 9.5 fL (7.6-11.3); Monocytes % 5.3 % (3.3-12.3); RBC Red Blood Cell Count 2.78 M/uL (3.86-4.86)
[2017-11-26 12:09] LABS: Protime INR 1.35
--- NOTE | 2017-11-26 12:32 | RAD REPORT ---
EXAM DESCRIPTION: RAD - Chest Single View - 11/26/2017 12:16 pm CLINICAL HISTORY: Chest pain, shortness of breath COMPARISON: Portal chest August 12 TECHNIQUE: AP portable chest image was obtained 1203 hours . FINDINGS: No peripheral consolidation or mass lesion. Pulmonary artery enlargement is noted and stab le. Cardiomegaly is present and fractionally increased. Upper lobe vasculature has increased and ther e is an overall prominence of the perihilar interstitial markings. Trachea is midline. No large pleur al effusion. Small posterior gutter pleural effusions are suspected. No gross bony abnormality seen. No acute aortic findings suspected. IMPRESSION: Mild CHF/ volume overload superimposed on chronic cardiomegaly and chronic pulmonary art dariana enlargement.
[2017-11-26 12:43] LABS: Albumin 2.6 g/dL (3.4-5.0); Bilirubin Direct 0.7 mg/dL (0-0.2); Bilirubin Total 1.1 mg/dL (0.2-1.0); Magnesium 2.1 mg/dL (1.8-2.4); Potassium 4.5 mmol/L (3.5-5.1); Protein, Total 6.8 g/dL (6.4-8.2)
[2017-11-26 13:01] LABS: Anisocytosis 3+; Blood Morphology Comment NOTED (NOT SEEN); Platelet Estimate DECR; Poikilocytosis 2+; Polychromasia 1+; Toxic Granulation 2+; Urine White Blood Cell Casts OK
[2017-11-26 13:02] LABS: Burr Cells 1+
[2017-11-26] MEDS ORDERED: NA CHLORIDE 0.9% 1,000 ML IV PRN (13:30)
[2017-11-26] MEDS ORDERED: EPOETIN ALFA 10,000 UNIT/ML VIAL IV SCH (13:30)
[2017-11-26] MEDS ORDERED: dilTIAZem HCl 50 MG/10 ML VIAL IV ONE (13:56)
[2017-11-26] MEDS ORDERED: ALBUMIN HUMAN 25% 50 ML IV SCH (14:00)
--- NOTE | 2017-11-26 14:35 | ER ---
Nurse's Notes [facility] Name: Dilia Perez Age: 77 yrs Sex: Female : 1940 Arrival Date: 11/26/2017 Time: 09:40 Bed 2 Private MD: Out, of [facility] Diagnosis: Acute Dyspnea;Acute CHF Presentation: 11/26 10:00 Presenting complaint: Child states: pt has swelling in right arm and swelling in legs, iw also was SOB and had palpitations this morning, pt is due for dialysis today but has been unable to set up dialysis at [facility] because she needs a CXR or TB test, [place] is moving to area from the [place]. Transition of care: patient was not received from another setting of care. Onset of symptoms was November 26, 2017. Risk Assessment: Do you want to hurt yourself or someone else? Patient reports no desire to harm self or others. Initial Sepsis Screen: Does the patient meet any 2 criteria? No. Patient's initial sepsis screen is negative. Does the patient have a suspected source of infection? No. Patient's initial sepsis screen is negative. Care prior to arrival: None. 10:00 Method Of Arrival: Wheelchair iw 10:00 Acuity: ALPA 3 iw 10:06 Presenting complaint: Patient states: BP has been running low. iw Triage Assessment: 16:40 General: Appears in no apparent distress. comfortable, Behavior is calm, cooperative, jb4 appropriate for age. Respiratory: Reports shortness of breath Onset: The symptoms/episode began/occurred yesterday, the patient has mild shortness of breath. Historical: - Allergies: 10:05 No Known Allergies; iw - Home Meds: 10:05 Eliquis 2.5 mg Oral tab [Active]; Lasix 40 mg Oral tab [Active]; reflux med [Active]; iw - PMHx: 10:10 Hypertension; Dialysis T-T-S; aa5 10:10 ESRD; aa5 - PSHx: 10:05 dialysis port R chest wall.; Cholecystectomy; iw - Immunization history:: Adult Immunizations up to date, Pneumococcal vaccine is up to date, Flu vaccine is up to date. - Ebola Screening: : Patient negative for fever greater than or equal to 101.5 degrees Fahrenheit, and additional compatible Ebola Virus Disease symptoms Patient denies exposure to infectious person Patient denies travel to an Ebola-affected area in the 21 days before illness onset No symptoms or risks identified at this time. - Social history:: Smoking status: Patient/guardian denies using tobacco. - Family history:: not pertinent. - Hospitalizations: : No recent hospitalization is reported. Screenin:07 Abuse screen: Denies threats or abuse. Nutritional screening: No deficits noted. jb4 Tuberculosis screening: No symptoms or risk factors identified. Fall Risk None identified. Assessment: 10:07 General: Appears in no apparent distress. comfortable, Behavior is calm, cooperative, jb4 appropriate for age. Pain: Denies pain. Neuro: Level of Consciousness is awake, alert, obeys commands, Oriented to person, place, time, situation. Cardiovascular: Heart tones S1 S2 present Patient's skin is warm and dry. Rhythm is atrial fibrillation With PVC's. Respiratory: Airway is patent Respiratory effort is even, unlabored, Respiratory pattern is regular, symmetrical, Breath sounds are clear bilaterally. GI: Abdomen is flat, Bowel sounds present X 4 quads. Abd is soft and non tender X 4 quads. : No signs and/or symptoms were reported regarding the genitourinary system. EENT: No signs and/or symptoms were reported regarding the EENT system. Derm: Skin is intact, Skin is dry, Skin is normal, Skin temperature is warm. Musculoskeletal: No signs and/or symptoms reported regarding the musculoskeletal system. Swelling present in right arm Pitting edema noted EMMY to the lower legs. 11:00 Reassessment: Patient appears in no apparent distress at this time. Patient and/or jb4 family updated on plan of care and expected duration. Pain level reassessed. Patient is alert, oriented x 3, equal unlabored respirations, skin warm/dry/pink. 12:16 Reassessment: Patient appears in no apparent distress at this time. Patient and/or jb4 family updated on plan of care and expected duration. Pain level reassessed. Patient is alert, oriented x 3, equal unlabored respirations, skin warm/dry/pink. Patient denies pain at this time. 13:15 Reassessment: Patient appears in no apparent distress at this time. Patient and/or jb4 family updated on plan of care and expected duration. Pain level reassessed. Patient is alert, oriented x 3, equal unlabored respirations, skin warm/dry/pink. 14:23 Reassessment: Patient appears in no apparent distress at this time. Patient and/or jb4 family updated on plan of care and expected duration. Pain level reassessed. Patient is alert, oriented x 3, equal unlabored respirations, skin warm/dry/pink. Patient denies pain at this time. 14:54 Reassessment: Physician notified of B/P no further orders at this time. jb4 16:00 Reassessment: Patient appears in no apparent distress at this time. Patient and/or jb4 family updated on plan of care and expected duration. Pain level reassessed. Patient is alert, oriented x 3, equal unlabored respirations, skin warm/dry/pink. Patient denies pain at this time. 16:54 Reassessment: Patient appears in no apparent distress at this time. Patient and/or jb4 family updated on plan of care and expected duration. Pain level reassessed. Patient is alert, oriented x 3, equal unlabored respirations, skin warm/dry/pink. Patient denies pain at this time. Vital Signs: 10:05 BP 93 / 73; Pulse 73; Resp 16; Temp 97.6; Pulse Ox 98% on R/A; Weight 58.97 kg; Height iw 5 ft. (152.40 cm); Pain 0/10; 11:00 BP 97 / 83; Pulse 104; Resp 13 S; Pulse Ox 100% on R/A; jb4 12:16 BP 102 / 72; Pulse 115; Resp 24; Pulse Ox 100% on R/A; jb4 12:30 BP 97 / 75; Pulse 104; Resp 21; Pulse Ox 98% on R/A; jb4 13:17 BP 103 / 71; Pulse 111; Resp 18; Pulse Ox 100% on R/A; jb4 14:15 BP 92 / 71; Pulse 89; Resp 18; Pulse Ox 95% on R/A; jb4 14:54 BP 90 / 70; Pulse 79; Resp 17; Pulse Ox 100% on R/A; jb4 16:00 BP 90 / 79; Pulse 88; Resp 20; Pulse Ox 100% on R/A; jb4 17:00 BP 101 / 79; Pulse 91; Resp 18; Pulse Ox 100% on R/A; jb4 10:05 Body Mass Index 25.39 (58.97 kg, 152.40 cm) iw 13:17 Verified Cardizem order with physician. jb4 ED Course: 09:40 Patient arrived in ED. mr 09:40 Out, [facility] is Private Physician. mr 09:50 Danitza Rust, RN is Primary Nurse. aj 10:00 Francisco Pinedo MD is Attending Physician. wa 10:04 Triage completed. iw 10:05 Arm band placed on. iw 10:07 Chad Rangel, RN is Primary Nurse. jb4 10:07 Patient has correct armband on for positive identification. Fall risk band placed. jb4 Placed in gown. Bed in low position. Call light in reach. Side rails up X2. crm marketing specialist on. Pulse ox on. NIBP on. 12:15 X-ray completed. Portable x-ray completed in exam room. Patient tolerated procedure mh1 well. 12:16 XRAY CXR (1 view) In Process Unspecified. EDMS 14:33 Roberta Moulton MD is Hospitalizing Provider. wa 15:08 US Extremity Venous Unilateral Ltd In Process Unspecified. EDMS 16:40 Inserted saline lock: 22 gauge in left wrist, using aseptic technique. Blood collected. jb4 16:40 Initial lab(s) drawn, by nd, sent to lab. jb4 16:43 EKG done, by anaesthetic technician. reviewed by Francisco Pinedo MD. 3 17:00 No provider procedures requiring assistance completed. jb4 17:00 Patient admitted, IV remains in place. jb4 Administered Medications: 14:04 Drug: Cardizem 10 mg Route: IVP; Site: left hand; jb4 14:30 Follow up: Response: No adverse reaction jb4 Outcome: 14:34 Decision to Hospitalize by Provider. wa 17:09 Patient left the ED. jb4 17:10 Admitted to Med/surg accompanied by nurse, via wheelchair, room 204, with chart, Report jb4 called to AMEENA To 17:10 Condition: stable jb4 17:10 Instructed on the need for admit, Demonstrated understanding of instructions. Signatures: Dispatcher [employer] EDMS Danitza Rust, RN Ashley Bettencourt Sarmad Pearsonha mh1 Estefania Thakur RN RN Asya Alvarado RN RN 5 Chad Rangel RN RN jb4 Francisco Pinedo MD MD wa Montes, Shakira sm3 Corrections: (The following items were deleted from the chart) 10:45 10:05 PMHx: Dialysis; MWF; iw aa5 14:26 13:17 BP 103 / 71; Pulse 111bpm; Resp 18bpm; Pulse Ox 100% RA; jb4 jb4
--- NOTE | 2017-11-26 14:35 | EDPHYS ---
Physician Documentation [facility] Name: Dilia Perez Age: 77 yrs Sex: Female : 1940 Arrival Date: 11/26/2017 Time: 09:40 Bed 2 Private MD: Out, of [facility], [facility] ED Physician Francisco Pinedo HPI: 11/26 14:17 This 77 yrs old Female presents to ER via Wheelchair with complaints of wa Shortness Of Breath, Blood Pressure Problem. 14:17 The patient has shortness of breath at rest. Onset: The symptoms/episode began/occurred wa 3 day(s) ago. Duration: The symptoms are continuous, and are steadily getting worse, also c/o weakness and R UE pain and swelling. states BP drops when gets dialysis. The patient's shortness of breath is aggravated by exertion, is alleviated by nothing. Associated signs and symptoms: Pertinent negatives: chest pain, non-productive cough, dizziness, fever, loss of consciousness, numbness in extremities, vomiting. Severity of symptoms: At their worst the symptoms were moderate just prior to arrival. The patient has experienced similar episodes in the past, several times. The patient has not recently seen a physician. Historical: - Allergies: 10:05 No Known Allergies; iw - Home Meds: 10:05 Eliquis 2.5 mg Oral tab [Active]; Lasix 40 mg Oral tab [Active]; reflux med [Active]; iw - PMHx: 10:10 Hypertension; Dialysis T-T-S; aa5 10:10 ESRD; aa5 - PSHx: 10:05 dialysis port R chest wall.; Cholecystectomy; iw - Immunization history:: Adult Immunizations up to date, Pneumococcal vaccine is up to date, Flu vaccine is up to date. - Ebola Screening: : Patient negative for fever greater than or equal to 101.5 degrees Fahrenheit, and additional compatible Ebola Virus Disease symptoms Patient denies exposure to infectious person Patient denies travel to an Ebola-affected area in the 21 days before illness onset No symptoms or risks identified at this time. - Social history:: Smoking status: Patient/guardian denies using tobacco. - Family history:: not pertinent. - Hospitalizations: : No recent hospitalization is reported. ROS: 14:21 Constitutional: Negative for fever, chills, and weight loss, Eyes: Negative for injury, wa pain, redness, and discharge, ENT: Negative for injury, pain, and discharge, Neck: Negative for injury, pain, and swelling, Abdomen/GI: Negative for abdominal pain, nausea, vomiting, diarrhea, and constipation, Back: Negative for injury and pain, Skin: Negative for injury, rash, and discoloration, Neuro: Negative for headache, weakness, numbness, tingling, and seizure. 14:21 MS/extremity: Positive for swelling, of the both legs. 14:21 All other systems are negative. Exam: 14:22 Constitutional: This is a well developed, well nourished patient who is awake, alert, wa and in no acute distress. Head/Face: Normocephalic, atraumatic. Eyes: Pupils equal round and reactive to light, extra-ocular motions intact. Lids and lashes normal. Conjunctiva and sclera are non-icteric and not injected. Cornea within normal limits. Periorbital areas with no swelling, redness, or edema. ENT: Nares patent. No nasal discharge, no septal abnormalities noted. Tympanic membranes are normal and external auditory canals are clear. Oropharynx with no redness, swelling, or masses, exudates, or evidence of obstruction, uvula midline. Mucous membranes moist. Neck: Trachea midline, no thyromegaly or masses palpated, and no cervical lymphadenopathy. Supple, full range of motion without nuchal rigidity, or vertebral point tenderness. No Meningismus. Chest/axilla: Normal chest wall appearance and motion. Nontender with no deformity. No lesions are appreciated. Abdomen/GI: Soft, non-tender, with normal bowel sounds. No distension or tympany. No guarding or rebound. No evidence of tenderness throughout. Back: No spinal tenderness. No costovertebral tenderness. Full range of motion. Neuro: Awake and alert, GCS 15, oriented to person, place, time, and situation. Cranial nerves II-XII grossly intact. Motor strength 5/5 in all extremities. Sensory grossly intact. Cerebellar exam normal. Normal gait. Psych: Awake, alert, with orientation to person, place and time. Behavior, mood, and affect are within normal limits. 14:22 Cardiovascular: Rate: tachycardic, Rhythm: irregularly irregular, Pulses: no pulse deficits are appreciated, Heart sounds: normal, Edema: 2+ edema to level of left midcalf, left ankle, left foot, left toes, right midcalf, right ankle, right foot and right toes, JVD: is not appreciated. 14:22 Respiratory: the patient does not display signs of respiratory distress, Respirations: normal, Breath sounds: decreased, coarse bilaterally. Vital Signs: 10:05 BP 93 / 73; Pulse 73; Resp 16; Temp 97.6; Pulse Ox 98% on R/A; Weight 58.97 kg; Height iw 5 ft. (152.40 cm); Pain 0/10; 11:00 BP 97 / 83; Pulse 104; Resp 13 S; Pulse Ox 100% on R/A; jb4 12:16 BP 102 / 72; Pulse 115; Resp 24; Pulse Ox 100% on R/A; jb4 12:30 BP 97 / 75; Pulse 104; Resp 21; Pulse Ox 98% on R/A; jb4 13:17 BP 103 / 71; Pulse 111; Resp 18; Pulse Ox 100% on R/A; jb4 14:15 BP 92 / 71; Pulse 89; Resp 18; Pulse Ox 95% on R/A; jb4 14:54 BP 90 / 70; Pulse 79; Resp 17; Pulse Ox 100% on R/A; jb4 16:00 BP 90 / 79; Pulse 88; Resp 20; Pulse Ox 100% on R/A; jb4 17:00 BP 101 / 79; Pulse 91; Resp 18; Pulse Ox 100% on R/A; jb4 10:05 Body Mass Index 25.39 (58.97 kg, 152.40 cm) iw 13:17 Verified Cardizem order with physician. jb4 MDM: 10:00 Patient medically screened. wa 14:24 Differential diagnosis: SOB. low BP. Afib RVR. R UE swelling. LE edema. r/o CHF. pt's wa port on R side where UE swelling is. will r/o DVT. 14:28 Data reviewed: vital signs, nurses notes, lab test result(s), EKG, radiologic studies. wa Test interpretation: by ED physician or midlevel provider: plain radiologic studies, EKG: HR 112. Afib RVR. lab noted for low GFR consistent with renal failure. anemia. thrombocytopenia. elevated Alk phos. elevated troponin and BNP. Response to treatment: the patient's symptoms have mildly improved after treatment. Physician consultation: Roberta Moulton MD was called at 14:30. Admission orders: after a detailed discussion of the patient's condition and case, the admit orders are written by me. 14:30 Test interpretation: by ED physician or midlevel provider: CXR: CHF. ED course: seen in ri ED by Dr. Jeffrey. ordered emergent dialysis. 15:34 Test interpretation: by ED physician or midlevel provider: RUE: no DVT. ri 11/26 11:15 Order name: Blood Culture Adult (2) ri 11/26 11:15 Order name: BMP; Complete Time: 14:15 ri 11/26 11:15 Order name: CBC with Diff; Complete Time: 14:15 ri 11/26 11:15 Order name: Hepatic Function; Complete Time: 14:15 ri 11/26 11:15 Order name: Magnesium; Complete Time: 13:17 ri 11/26 11:15 Order name: NT PRO-BNP; Complete Time: 14:16 ri 11/26 11:15 Order name: PT-INR; Complete Time: 12:41 ri 11/26 11:15 Order name: Troponin (emerg Dept Use Only); Complete Time: 12:41 ri 11/26 12:08 Order name: CBC Smear Scan; Complete Time: 13:17 [facility] 11/26 13:31 Order name: Hepatitis B Surface Antibody [facility] 11/26 13:31 Order name: Hepatitis B Surface Ab,Quant [facility] 11/26 13:31 Order name: Hep B Surface AG w/ Confirm [facility] 11/26 13:31 Order name: Hepatitis B Core Ab, Total [facility] 11/26 15:12 Order name: CBC with Automated Diff [facility] 11/26 11:15 Order name: XRAY CXR (1 view) ri 11/26 11:15 Order name: EKG; Complete Time: 11:15 ri 11/26 11:15 Order name: Cardiac monitoring; Complete Time: 12:15 ri 11/26 11:15 Order name: EKG - Nurse/Tech; Complete Time: 12:15 ri 11/26 11:15 Order name: IV Saline Lock; Complete Time: 12:16 ri 11/26 11:15 Order name: Labs collected and sent; Complete Time: 12:15 ri 11/26 11:15 Order name: O2 Per Protocol; Complete Time: 12:15 ri 11/26 11:15 Order name: O2 Sat Monitoring; Complete Time: 12:15 ri 11/26 13:17 Order name: Diet Renal; Complete Time: 13:17 jb4 11/26 14:28 Order name: US Extremity Venous Unilateral Ltd; Complete Time: 15:34 ri 11/26 15:12 Order name: CONS Physician Consult [facility] 11/26 15:12 Order name: CBC with Automated Diff EDMS 11/26 15:12 Order name: Comprehensive Metabolic Panel [facility] 11/26 15:12 Order name: Comprehensive Metabolic Panel EDMS 11/26 15:12 Order name: Troponin I EDMS Administered Medications: 14:04 Drug: Cardizem 10 mg Route: IVP; Site: left hand; [facility] 14:30 Follow up: Response: No adverse reaction jb4 Disposition: 11/26/17 14:34 Hospitalization ordered by Roberta Moulton for Observation. Preliminary diagnosis are Acute Dyspnea, Acute CHF. - Bed requested for Telemetry/MedSurg (Inpatient). - Status is Observation. jb4 - Condition is Stable. - Problem is new. - Symptoms have improved. UTI on Admission? No Signatures: Dispatcher [employer] EDLA Estefania Thakur RN RN Asya Alvarado RN RN aa5 Chad Rangel RN RN jb4 Francisco Pinedo MD MD wa Baxter, Mackenzie mb4 Corrections: (The following items were deleted from the chart) 10:45 10:05 PMHx: Dialysis; MWF; iw aa5 16:26 14:34 Hospitalization Ordered by Roberta Moulton MD for Observation. Preliminary diagnosis mb4 is Acute Dyspnea; Acute CHF. Bed requested for Telemetry/MedSurg (Inpatient). Status is Observation. Condition is Stable. Problem is new. Symptoms have improved. UTI on Admission? No. ri 17:09 16:26 11/26/2017 14:34 Hospitalization Ordered by Roberta Moulton MD for Observation. jb4 Preliminary diagnosis is Acute Dyspnea; Acute CHF. Bed requested for Telemetry/MedSurg (Inpatient). Status is Observation. Condition is Stable. Problem is new. Symptoms have improved. UTI on Admission? No. mb4
[2017-11-26] MEDS ORDERED: ACETAMINOPHEN 500 MG TAB PO PRN (15:09)
[2017-11-26] MEDS ORDERED: ONDANSETRON 4 MG/2 ML VIAL IV PRN (15:09)
--- NOTE | 2017-11-26 15:31 | RAD REPORT ---
EXAM DESCRIPTION: US - EXTREMITY VENOUS UNI LTD - 11/26/2017 3:13 pm CLINICAL HISTORY: Right arm pain and swelling COMPARISON: None. TECHNIQUE: Real-time sonographic evaluation of the right upper extremity deep venous systems was per formed. FINDINGS: Normal compressibility, flow augmentation, phasic flow and spontaneous flow are identified in the right upper axillary, brachial, radial and ulna veins superficial basilic and cephalic veins clear as well. No intraluminal filling defects seen. Internal jugular and subclavian veins are normal as well. IMPRESSION: No DVT in the right upper extremity.
--- NOTE | 2017-11-26 16:29 | EKG ---
Test Date: 2017-11-26 Test Time: 10:15:05 Incident Response Coordinator: MALKA MEASUREMENT RESULTS: Intervals: Rate: 112 IA: QRSD: 90 QT: 308 QTc: 420 Winnie: P: IA: QRS: -52 T: 51 INTERPRETIVE STATEMENTS: Atrial fibrillation with rapid ventricular response with premature ventricular or aberrantly conducted complexes Left axis deviation Low voltage QRS Nonspecific T wave abnormality, probably digitalis effect Abnormal ECG Compared to ECG 08/12/2017 12:04:18 Left-axis deviation now present Myocardial infarct finding no longer present T-wave abnormality still present Electronically Signed On 11-26-17 16:27:18 CDT by Michael Spain
[2017-11-26] MEDS ORDERED: ENOXAPARIN 30 MG/0.3 ML SQ SCH (17:00)
--- NOTE | 2017-11-26 17:19 | CON ---
Date of Consultation: 11/26/2017 Additional Consulting Physician: Doctor in ER. Reason For Consultation: Elevated BUN and creatinine, electrolyte imbalance, anasarca, end-stage more al disease. History Of Present Illness: This is a 77-year-old female, well known to me from the dialysis with si gnificant past medical history of hypertension, hyperlipidemia, end-stage renal disease on hemodialys is, TTS the patient supposed to come for location. She did not finalize her transfer [facility]. She show up to the dialysis, found to have over volume. The patient was referred to the ER. The patient according to her, she was dialyzed Thursday, had some nausea and vomiting and low blood p ressure. For that reason, they did not remove that much of fluid. The patient known to be poor comp liant with fluid restriction. Past Medical History: Include: 1.Hypertension. 2.Hyperlipidemia. 3.End-stage renal disease, on hemodialysis. Social History: Denies smoking, denies drinking, denies drug abuse. Past Surgical History: Include PermCath. Family History: Positive for hypertension. Allergies: NO KNOWN DRUG ALLERGY. Review of Systems: Head and Neck: No red eye. No ear pain. GI: No nausea. No vomiting. : No polyuria. No dysuria. No hematuria. PAYMASTER OF PURSES: No vaginal discharge. Respiratory: Has shortness of breath. Cardiovascular: Has leg edema. Endocrine: No polydipsia. Skin: No rash. Home Medications: Include ramelteon, pantoprazole, levothyroxine, Lasix, and Eliquis. Physical Examination: Vital Signs: When I saw the patient, blood pressure 102/60, pulse of 88. Chest: Crackles bilateral base. Heart: S1, S2. Regular. Systolic murmur. Abdomen: Soft, nontender. Extremities: +1 edema. Laboratory Data: WBC 8.8, H and H 9.5/28.7, platelet of 56. Sodium 143, potassium 4.5, bicarb 23, B UN 64, creatinine 5.9, calcium 8.5. Assessment And Plan: 1.End-stage renal disease, over volume. We will arrange for dialysis today. We will challenge the patient. 2.Hypertension, controlled, optimal. Currently on the lower side. We will utilize blood pressure f or more ultrafiltration. 3.Congestive heart failure. Continue follow up with the Cardiology. We will try to establish taco r volume control with the dialysis. She has more diastolic dysfunction. 4.Right atrial thrombus. We will follow up with Cardiology. Continue anticoagulation. Thank you for allowing us to participate in the care of your patient. COLE Voice ID: [id number] Report ID: [id number]
[2017-11-26 19:06] LABS: Urine Appearance TURBID; Urine Bilirubin NEGATIVE (NEG); Urine Blood 2+ (NEG); Urine Color YELLOW; Urine Glucose NEGATIVE (NEG); Urine Protein 2+ (NEG); Urine Urobilinogen 0.2 mg/dL (0.2-1.0)
[2017-11-26 19:22] LABS: Urine Bacteria LOADED /HPF (<20); Urine Culture Reflex Order REFLEXED; Urine Mucus 2+ /HPF (NONE SEEN)
[2017-11-26] MEDS: PANTOPRAZOLE 40MG TABLET PO SCH (22:42)
--- NOTE | 2017-11-27 02:26 | HP ---
Date of Admission: 11/26/2017 Consultants: Dr. Jeffrey with Nephrology. Chief Complaint: Shortness of breath, generalized weakness. Code Status: Full code. Daughter is the medical power of civil litigation attorney. No living will. History Of Present Illness: The patient is a 77-year-old female with past medical history of end-sta ge renal disease, on hemodialysis; essential hypertension, recently running hypotensive; who comes in with some generalized weakness and shortness of breath. The patient gets dialysis Tuesdays, , Saturdays. The patient's initial workup revealed a creatinine of 5.9. Troponin was 0.16. BNP w as 166,968. White count was normal. Chest x-ray showed CHF, volume overload superimposed on chronic cardiomegaly, and chronic pulmonary artery enlargement. The patient was set up for dialysis in the hospital and then referred for admission. When seen in the ER, she was awake, alert, oriented, in so me mild distress. [place]-speaking only. The patient's symptoms are constant, moderate, progressive ly worsening. 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 Past Surgical History: Cholecystectomy, hernia repair, dialysis catheter placement. Medications: List reviewed. Allergies: NO KNOWN DRUG ALLERGIES. Social History: The patient denies any alcohol use, tobacco use, or illicit drug use. Lives with he r daughter. Review of Systems: Ten-point system negative except as per HPI. Family History: No history of premature coronary artery disease. Physical Examination: Vital Signs: Blood pressure 93/73, pulse 73, respirations 16, temperature 97.6, O2 98% on room air. General: Awake, alert, oriented x3, in some mild distress. Elderly female, lethargic. HEENT: Normocephalic, atraumatic. PERRLA. EOMI. Dry mucous membranes. Oropharynx is clear. Conj unctivae anicteric. Poor dentition. Neck: Supple. Trachea midline. CV: S1, S2. No murmurs. Peripheral pulses present. Respiratory: Diminished breath sounds. Some crackles heard. No wheezing or stridor. No use of acc essory muscles. Gastrointestinal: Abdomen is soft, nontender, nondistended. Positive bowel sounds. Extremities: No clubbing, cyanosis. The patient does have some right upper extremity swelling. Neuro: Cranial nerves 2 through 12 intact grossly. No focal neurological deficit. Speech is normal . Strength is 5/5 bilateral upper and lower extremities. Skin: No rashes. Normal skin turgor. Psych: Mood is okay. Affect is full. Insight and judgment are fair. Laboratory Data: Sodium 142, potassium 4.5, chloride 105, CO2 23, BUN 64, creatinine 5.9, glucose 96 , calcium 8.5, magnesium 2.1. Troponin 0.16. BNP 166,968. Albumin 2.6, INR 1.35. WBC 8.8, H and H 9.5 and 28.7, platelets 56, neutrophils 85%. Chest x-ray shows volume overload. Doppler venous ult rasound of the right upper extremity shows no DVT. Assessment And Plan: A 77-year-old female with: 1.Acute volume overload. The patient will be going for dialysis today. Dr. Jeffrey has been consu lted. 2.End-stage renal disease, on hemodialysis Thursday, , and Thursday in the [place]. 3.Essential hypertension, currently hypotensive. We will hold blood pressure medications for now. 4.Chronic congestive heart failure. Ejection fraction is 48%, systolic dysfunction. 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 The patient apparently was dis charged on Eliquis, however, has not been taking it. We will repeat echocardiogram to evaluate throm bus. We will start on Lovenox therapeutic dose. 6.Diabetes mellitus type 2. We will continue sliding scale insulin. The patient does not take insu stephanie at home. Does have chronic kidney complications. Admit the patient to Med-Surg, [facility] as observation. We will continue with dialysis. Repeat troponi n level. Initial level is elevated at 0.16. May need cardiology evaluation. We will obtain echocar diogram. SA/MODL Voice ID: [id number]
[2017-11-27 05:05] LABS: Absolute Lymphocytes (CBC) 0.1 K/uL (0.7-4.9); Absolute Monocytes 0.2 K/uL (0.1-1.3); Absolute Neutrophil 7.2 K/uL (1.8-8.0); Basophils % 0.2 % (0-1.3); Eosinophils % 0.1 % (0-4.4); Hematocrit 26.6 % (36.0-45.0); Lymphocytes % 1.7 % (15.3-44.8); MCH 34.6 pg (27.0-35.0); MCV 102.1 fL (80-100); MPV 9.8 fL (7.6-11.3); Monocytes % 2.1 % (3.3-12.3); RBC Red Blood Cell Count 2.61 M/uL (3.86-4.86)
[2017-11-27 05:27] VITALS: BMI 22.6
[2017-11-27 05:32] LABS: Albumin 2.2 g/dL (3.4-5.0); Bilirubin Total 1.1 mg/dL (0.2-1.0); Potassium 3.4 mmol/L (3.5-5.1); Protein, Total 5.8 g/dL (6.4-8.2)
--- NOTE | 2017-11-27 07:08 | EKG ---
Test Date: 2017-11-26 Test Time: 16:37:52 Senior Director: MIGUEL ANGEL MEASUREMENT RESULTS: Intervals: Rate: 92 MN: QRSD: 92 QT: 384 QTc: 474 [place]: P: MN: QRS: 101 T: 45 INTERPRETIVE STATEMENTS: Atrial fibrillation with premature ventricular or aberrantly conducted complexes Rightward axis Low voltage QRS Abnormal ECG Compared to ECG 11/26/2017 10:15:05 Right-axis deviation now present Left-axis deviation no longer present T-wave abnormality no longer present Electronically Signed On 11-27-17 07:07:16 CDT by Iban Nina
[2017-11-27] MEDS ORDERED: METOPROLOL TAR 25 MG TAB PO SCH (09:00)
[2017-11-27] MEDS ORDERED: ENOXAPARIN 60 MG/0.6 ML SQ SCH (09:00)
[2017-11-27] MEDS ORDERED: APIXABAN 2.5 MG TABLET PO SCH (09:00)
[2017-11-27] MEDS ORDERED: ENOXAPARIN 100 MG/ML SYR SQ SCH (09:00)
[2017-11-27] MEDS: PANTOPRAZOLE 40MG TABLET PO SCH (09:05)
[2017-11-27] MEDS ORDERED: VANCOMYCIN/NS 1 gm 1 GM/250 ML BAG IVPB SCH (12:15)
[2017-11-27] MEDS ORDERED: VANCOMYCIN 500 MG in NA CHLORIDE 0.9% 100 ML IVPB SCH (12:30)
--- NOTE | 2017-11-27 12:35 | ECHO ---
HEIGHT: 5 ft 0 in WEIGHT: 116 lb 2 oz DATE OF STUDY: 11/27/[address]: Roberta Moulton MD 2-DIMENSIONAL: YES M.MODE: YES DOPPLER: YES COLOR FLOW: YES TDS: NO PORTABLE: NO DEFINITY: NO BUBBLE STUDY: NO DIAGNOSIS: RIGHT ATRIAL THROMBUS CARDIAC HISTORY: CATHERIZATION: NO SURGERY: NO PROSTHETIC VALVE: NO PACEMAKER: NO MEASUREMENTS (cm) DIASTOLIC (NORMALS) SYSTOLIC (NORMALS) IVSd 1.0 (0.6-1.2) LA Diam 6.4 (1.9-4.0) LVEF 46% LVIDd 5.8 (3.5-5.7) LVIDs 4.4 (2.0-3.5) %FS 23% LVPWd 1.2 (0.6-1.2) Ao Diam 3.2 (2.0-3.7) 2 DIMENSIONAL ASSESSMENT: RIGHT ATRIUM: DILATED MASS, POSSIBLE THROMBUS LEFT ATRIUM: DILATED RIGHT VENTRICLE: DILATED LEFT VENTRICLE: DILATED TRICUSPID VALVE: MITRAL VALVE: MITRAL ANNULAR CALCIFICATION. MASS ON ANTERIOR LEAFLET CANNOT RULE OUT VEGETATION PULMONIC VALVE: AORTIC VALVE: SCLEROSIS PERICARDIAL EFFUSION: NONE AORTIC ROOT: NORMAL LEFT VENTRICULAR WALL MOTION: MILD GLOBAL HYPOKINESIS. DOPPLER/COLOR FLOW: MODERATE MITRAL REGURGITATION. MODERATE TRICUSPID REGURGITATION. ESTIMATED RIGHT VENTRICULAR SYSTOLIC PRESSURE 58mHg. MODERATE PULMONARY HYPERTENSION. COMMENTS: FOUR CHAMBER DILATATION. DEPRESSED LEFT VENTRICULAR EJECTION FRACTION. RIGHT ATRIAL MASS, POSSIBLE THROMBUS. DILATED LEFT AND RIGHT ATRIUM. MODERATE MITRAL REGURGITATION. MODERATE TRICUSPID REGURGITATION. MODERATE TO SEVERE PULMONARY HYPERTENSION. ANTERIOR MITRAL LEAFLET MASS, CANNOT RULE OUT VEGETATION. TECHNOLOGIST: DEREK PRESLEY
[2017-11-27] MEDS ORDERED: CEFTRIAXONE/SWI 2gm 2 GM/20 ML SYR IV SCH (13:00)
--- NOTE | 2017-11-27 14:58 | RAD REPORT ---
EXAM DESCRIPTION: CT - Abdomen Pelvis W/Wo Contrast - 11/27/2017 2:29 pm CLINICAL HISTORY: Abdominal pain/mitral valve vegetation COMPARISON: None. TECHNIQUE: Computed axial tomography of the abdomen and pelvis was obtained. Unenhanced and enhanced images were taken. 100 cc Isovue 300 was administered intravenously. Images were obtained in arteria l, venous and delayed phases. Coronal reconstruction was performed. All CT scans are performed using dose optimization technique as appropriate and may include automated exposure control or mA/KV adjustment according to patient size. FINDINGS: The heart is enlarged. Small right and tiny left pleural effusions are present. Liver has a mildly nodular contour with prominence of the caudate lobe. The hepatic veins and IVC are distended. The gallbladder has been removed. The spleen is borderline enlarged. Pancreas appears grossly normal. Kidneys are small. A 15 millimeter cyst extends off of the left kidney. An additional smaller left re nal cyst is present. There is no evidence of diverticulitis. A small amount of ascites is present. Left inguinal hernia co ntains ascites. Diffuse edema is present within the subcutaneous tissues. Due to the diminished left ventricular ejection fraction there is only opacification of the arteries on the venous phase. On the delayed phase most of the contrast had already emptied from the veins . This markedly limits the detection of a potential renal vein thrombus. However, secondary signs of a renal vein thrombus are not seen as the renal veins are not distended. 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 A diverticulum stems from the duodenum IMPRESSION: Limited evaluation of the renal veins as described above. Secondary signs of right renal vein thrombus are not seen. As the renal veins are poorly opacified with contrast it is recommended that the patient have an ultrasound of the renal veins for further evaluation The exam was discussed with Dr. Moulton
--- NOTE | 2017-11-27 16:07 | DS ---
Date of Discharge: 11/27/2017 Consultants: Dr. Flower with Nephrology. Discharge Diagnoses: 1. Acute volume overload secondary to missed dialysis. 2. End-stage renal disease, on hemodialysis on Thursday, , Thursday. 3. Essential hypertension, currently hypotensive. 4. Chronic congestive heart failure, systolic dysfunction. 5. History of atrial thrombus, on Eliquis. 6. Diabetes mellitus type 2 with chronic kidney disease, without long-term use of insulin. 7. Elevated troponin level. Hospital Course: The patient is a 77-year-old female, Citizen Of [place] speaking, who lives in the [place], comes in with missed hemodialysis as the patient has been trying to switch over her dialysis to [facility] locally. The patient was sent to the ER as she has not been accepted at [facility] as yet there are missing information regarding her TB screen chest x-ray. The patient came in with acute volume overload. She was short of breath and she was requiring supplemental oxygen. She had peripheral edema and her chest x-ray showed fluid overload. The patient's creatinine was 5.9. The patient was seen by Dr. Jeffrey, who ordered emergency dialysis. The patient was dialyzed on the day of admission, she felt significantly better. She did have some troponin elevation and, however, no EKG changes. The patient did have history of atrial thrombus, which was diagnosed in July and she was started on Eliquis initially , it was unclear whether the patient was on Eliquis or not; however, with business unit leader, the patient does state that she has been taking the Eliquis regularly as her blood thinner. The patient also has some swelling of her right arm and pain. Ultrasound was done, which did not show any DVT. The patient does have atrial fibrillation, which is paroxysmal. The patient is on beta-matilde and Eliquis, which were continued. The patient's condition improved significantly. She was no longer short of breath. She was off oxygen. She was then cleared for discharge from Nephrology standpoint. The patient will be discharged home in a fair condition. Activity: As tolerated. Diet: Renal. Followup: Followup with PCP in 2 to 3 days. Followup with geophysical laboratory chief, Dr. Jeffrey in 2 weeks. Return to ER for worsening condition. Physical Examination: General: Awake, alert, oriented, no acute distress, elderly female. CV: S1, S2. No murmurs. Respiratory: Moving air well bilaterally. No wheezing. Gastrointestinal: Abdomen is soft, nontender, nondistended. Positive bowel sounds. Extremities: No clubbing, cyanosis, edema. Neurologic: Nonfocal. Medications: As per medication reconciliation list. ADDENDUM: Patient echo shows possible vegetation vs thrombus. Will obtain blood cultures, start IV abx and obtain CT abd pelvis to rule out renal vein thrombus. Will cancel DC SA/MODL Voice ID: [id number] Report ID: [id number] MTDD
--- NOTE | 2017-11-27 17:35 | P.PN ---
Date of Service: 11/27/[address] Nina regarding atrial mass. Apparently patient is aware of this mass and has had it for about 15 years. 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 Patient will be continued on eliquis for her Afib. No signs of thrombus from renal vein on CT. No signs symptoms of endocarditis. No fevers. Ok to DC from cardiology standpoint.
--- NOTE | 2017-11-27 17:52 | RAD REPORT ---
EXAM DESCRIPTION: US - Abdomen Pelvis Scan US - 11/27/2017 4:22 pm CLINICAL HISTORY: evaluate for renal vein thrombus COMPARISON: Abdomen Pelvis W/Wo Contrast dated 11/27/2017 FINDINGS: Grayscale, spectral, color and power Doppler assessment of the IVC and renal veins was per formed. No sonographic abnormality is seen to indicate renal vein thrombosis. Both renal veins are noted to b e patent and draining into a patent IVC. IMPRESSION: Negative study.
[2017-11-27 17:54] VITALS: BP 86/68; TEMP 97.2
[2017-11-27 18:09] VITALS: O2SAT 94
--- NOTE | 2017-11-27 19:52 | CON ---
Reason For Consultation: The patient was sent from dialysis. I am not actually able to discover marisabel meraz the reason, but I think it was to evaluate her before they enrolled her in chronic hemodialysis. She has a history of heart disease. She has a mass in the right atrium. There was a possibility i t was a thrombus, but it has not resolved with months of anticoagulation. She is on Eliquis 2.5 b.i. d. as a dialysis patient because of chronic AFib. The mass does not seem to be a renal vein thrombus and she reports that her doctors in the [place] were aware of it and has been unchanging for years. 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 We do not really need to change what we are doing with her. The indication for her to remain on Eliquis would be atrial fibrillation and so that should continue. She denies chest pain or shortness of breath, was not having any particular problem. She wants to stay here for 15 days a nd go back to the [place]. She wants to have hemodialysis set up in both places. Physical Examination: General: 5 feet tall, 116 pounds. Appears to be her stated age. Alert, oriented, not in distress. Vital signs: Her heart rate is going about 90-110 beats per minute, irregularly irregular. Blood pr essures are typically 91/67 and 86/56. Lungs: Clear. Heart: Reveals a systolic murmur. No diastolic murmur, but diastole is very short, which has slowed down, I think, in hospital there is a diastolic murmur. Diagnostic Data: Her electrocardiogram shows atrial fib, heart rate 112, PVCs, left axis deviation. Her echocardiogram shows EF in the 35% to 40% range. Right atrium, right ventricle, left atrium are all markedly dilated. There was [id number] MR. Medications: Home medications have been Protonix, Eliquis, furosemide, metoprolol. I wonder if she really needs to be on furosemide being a dialysis patient. I think we can safely say that it is not a renal vein thrombus. There is no evidence of renal cancer. 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 There was also anterior mitral le aflet mass that does not seem to be changing over time. We are going to get some blood cultures, chandler e sure she is not infected. She certainly does not look like a person with endocarditis. No physica l findings. No constitutional findings consistent with that. Serial blood cultures are negative, no nspecific nodular area of the mitral valve. She tends to have low blood pressure and rate control, p erhaps with digoxin instead of metoprolol might allow our blood pressure to be higher. The digoxin d ose would probably be 0.125 mg 3 times a week after dialysis. I think if we try to give her Cardizem , verapamil or higher doses of metoprolol would probably end up hypotension even worse than what we h ave. NIYAH/YONG Voice ID: [id number] Report ID: [id number]
[2017-11-28 17:49] LABS: HBsAG Nonreactive (Nonreactive)
== END 2017-11-27 19:31 | disposition home or self-care (01) ==
LOC: ER 09:36 → ERHOLD 15:37 → 2ND 16:51
PROVIDERS: ADMIT Family Medicine; ATTEND Family Medicine
DX: I13.2 Hypertensive heart and chronic kidney disease with heart failure and with stage 5 chronic kidney disease, or end stage renal disease (principal); E11.22 Type 2 diabetes mellitus with diabetic chronic kidney disease; N18.6 End stage renal disease; I50.22 Chronic systolic (congestive) heart failure; I48.0 Paroxysmal atrial fibrillation; Z79.01 Long term (current) use of anticoagulants; I51.3 Intracardiac thrombosis, not elsewhere classified; I95.9 Hypotension, unspecified
CPT/HCPCS: 36415; 71045; 74178; 80048; 80053; 80076; 81001; 83735; 83880; 84484 ×2; 85025 ×2; 85610; 86317; 86704; 86706; 87040 ×4; 87077 ×2; 87086; 87088; 87186 ×2; 87340; 90935 ×2; 93005 ×2; 93306; 93971; 93975; 94760 ×2; 96374; 99285; G0257; G0378 ×2; J0696; Q4081; Q9967

== ENCOUNTER 2017-12-18 09:35 | Emergency (ER) | payer OTHER ==
--- OUTSIDE RECORDS SUMMARY | 2017-12-18 09:55 | XMS REPORT ---
:1940 Author Organization eClinicalWorks Care Team Providers Name Role Phone Gilmore, [facility] Provider Role Unavailable Allergies, Adverse [...] mellitus E11.9 Active without complication, unspecified whether shelter insulin use Problem GERD without esophagitis K21.9 Active Problem Hypothyroidism, unspecified type E03.9 Active Assessment Controlled type 2 diabetes mellitus E11.9 Active without complication, unspecified whether shelter insulin use Assessment HTN (hypertension), benign I10 Active Assessment GERD without esophagitis K21.9 Active Assessment Hypothyroidism, unspecified type E03.9 Active Assessment Systolic congestive heart failure, I50.20 Active unspecified HF chronicity Assessment Dependence on renal dialysis Z99.2 Active Medications Medication Code Code Instructions Start End Status Dosage System Date Date Eliquis [facility] 57632837770 2.5 MG Orally Active 1 tab once a day Furosemide [facility] 70590284879 40 MG Orally Active 1 tablet Once a day Levothyroxine [facility] 66719206441 125 MCG Orally Active 2 tablet Sodium Once a day on an empty stomach in the morning Pantoprazole [facility] 99483020517 40 MG Orally Active 1 tablet Sodium Once a day Results No Known Results Summary Purpose eClinicalWorks Submission
--- OUTSIDE RECORDS SUMMARY | 2017-12-18 09:55 | XMS REPORT ---
:1940 Author Organization e[employer] Care Team Providers Name Role Phone Gilmore, [facility] Provider Role Unavailable Allergies No Known [...] mellitus E11.9 Active without complication, unspecified whether long distance operator insulin use Problem GERD without esophagitis K21.9 Active Problem Hypothyroidism, unspecified type E03.9 Active Medications No Known Medications Results No Known Results Summary Purpose eClinicalWorks Submission
[2017-12-18] MEDS ORDERED: CIPROFLOXACIN 400mg IV 400 MG/200 ML BAG IV ONE (11:18)
[2017-12-18] MEDS ORDERED: NA CHLORIDE 0.9% 250 ML ONE (11:18)
[2017-12-18] MEDS ORDERED: FAMOTIDINE 20 MG/2 ML VIAL IV ONE (11:18)
[2017-12-18] MEDS ORDERED: METRONIDAZOLE 500mg IVPB 500 MG/100 ML BAG IV ONE (11:19)
[2017-12-18 11:29] LABS: Absolute Lymphocytes (CBC) 0.7 K/uL (0.7-4.9); Absolute Monocytes 0.2 K/uL (0.1-1.3); Absolute Neutrophil 2.8 K/uL (1.8-8.0); Basophils % 0.8 % (0-1.3); Hematocrit 23.1 % (36.0-45.0); Lymphocytes % 17.2 % (15.3-44.8); MCH 36.8 pg (27.0-35.0); MCV 108.4 fL (80-100); MPV 9.9 fL (7.6-11.3); Monocytes % 6.1 % (3.3-12.3); Protime INR 1.24; RBC Red Blood Cell Count 2.13 M/uL (3.86-4.86)
--- NOTE | 2017-12-18 11:45 | RAD REPORT ---
EXAM DESCRIPTION: RAD - Chest Single View - 12/18/2017 11:18 am CLINICAL HISTORY: Shortness of breath, dialysis patient with history of missing 3 appointments COMPARISON: November 26, 2017 TECHNIQUE: AP portable chest image was obtained 1113 hours . FINDINGS: No peripheral consolidation or mass lesions seen. Interstitial markings are prominent in t he right hemithorax and in the upper left lung field. Cardiomegaly is present not substantially diffe rent from comparison. Pulmonary artery enlargement is present and also stable. The enlarged cardiac s ilhouette obscures the mid and lower left lung field. This pattern was seen on the prior study. Upper lobe vasculature is mildly prominent. No pneumothorax or large pleural effusion. No gross bony abnor mality seen. No acute aortic findings suspected. IMPRESSION: Prominent but stable cardiomegaly with vascular engorgement. Pulmonary artery enlargemen t is present and stable. Failure/volume overload pattern is present but less pronounced than expected for having missed 3 dial ysis treatments.
[2017-12-18 12:27] LABS: Urine White Blood Cell Casts OK
[2017-12-18 12:28] LABS: Anisocytosis 1+; Blood Morphology Comment NOTED (NOT SEEN); Macrocytosis 1+; Platelet Estimate DECR; Poikilocytosis 1+
[2017-12-18 12:32] LABS: Albumin 2.3 g/dL (3.4-5.0); Bilirubin Direct 0.6 mg/dL (0-0.2); CKMB Creatine Kinase MB 1.6 ng/mL (0.3-3.6); Magnesium 2.2 mg/dL (1.8-2.4); Potassium 4.9 mmol/L (3.5-5.1); Protein, Total 5.9 g/dL (6.4-8.2); Troponin (Emerg Dept Use Only) 0.1 ng/mL (0.0-0.045)
--- NOTE | 2017-12-18 12:36 | ER ---
Nurse's Notes [facility] Name: Dilia Perez Age: 77 yrs Sex: Female : 1940 Arrival Date: 12/18/2017 Time: 09:48 Bed 4 Private MD: Diagnosis: End stage renal disease;Anemia, unspecified;Gastrointestinal hemorrhage, unspecified;Cardiomegaly;Hypotension;Atrial fibrillation and flutter Presentation: 12/18 10:11 Presenting complaint: Patient states: Dark red blood in stool with clots. Patient has aj missed 3 dialysis appointments. Denies pain. Transition of care: patient was not received from another setting of care. Onset of symptoms was November 15, 2017. Risk Assessment: Do you want to hurt yourself or someone else? Patient reports no desire to harm self or others. Initial Sepsis Screen: Does the patient meet any 2 criteria? No. Patient's initial sepsis screen is negative. Does the patient have a suspected source of infection? No. Patient's initial sepsis screen is negative. Care prior to arrival: None. 10:11 Method Of Arrival: Wheelchair aj 10:11 Acuity: ALPA 2 aj Triage Assessment: 10:15 General: Appears in no apparent distress. comfortable, Behavior is calm, cooperative, aj appropriate for age. Pain: Denies pain. Neuro: Level of Consciousness is awake, alert, obeys commands, Oriented to person, place, time, situation, Appropriate for age. Respiratory: Airway is patent Respiratory effort is even, unlabored, Respiratory pattern is regular, symmetrical. GI: Reports bloody stool. Derm: Skin is intact, is thin, Skin is normal, dusky. Historical: - Allergies: 10:15 No Known Allergies; aj - Home Meds: 10:15 Eliquis 2.5 mg Oral tab [Active]; pantoprazole 40 mg oral TbEC 1 tab once daily aj [Active]; Lasix 40 mg Oral tab [Active]; hydroxyzine HCl 25 mg Oral tab 1 tab 3 times per day [Active]; metoprolol tartrate 25 mg Oral tab 1 tab once daily [Active]; - PMHx: 10:15 Dialysis T-T-S; ESRD; HD T-TH-Sat; Hypertension; aj - PSHx: 10:15 None; aj - Immunization history:: Adult Immunizations up to date. - Social history:: Smoking status: Patient/guardian denies using tobacco. - Ebola Screening: : Patient negative for fever greater than or equal to 101.5 degrees Fahrenheit, and additional compatible Ebola Virus Disease symptoms Patient denies exposure to infectious person Patient denies travel to an Ebola-affected area in the 21 days before illness onset No symptoms or risks identified at this time. - Family history:: not pertinent. Screenin:03 Abuse screen: Denies threats or abuse. Denies injuries from another. Nutritional jl7 screening: No deficits noted. Tuberculosis screening: No symptoms or risk factors identified. Fall Risk IV access (20 points). Total Neumann Fall Scale indicates No Risk (0-24 pts). Assessment: 10:30 General: Appears in no apparent distress. uncomfortable, Behavior is calm, cooperative. jl7 Pain: Denies pain. Neuro: Level of Consciousness is awake, alert, obeys commands. Cardiovascular: Heart tones present Patient's skin is warm and dry. Respiratory: Airway is patent Respiratory effort is even, unlabored, Respiratory pattern is regular, symmetrical. GI: Abdomen is flat, non-distended, Stools are reported to be loose, Last BM at 03:00. Bowel sounds present X 4 quads. Abd is soft and non tender X 4 quads. Reports bloody stool. : No signs and/or symptoms were reported regarding the genitourinary system. Denies burning with urination. EENT: No signs and/or symptoms were reported regarding the EENT system. Derm: Skin is pink, warm \T\ dry. Musculoskeletal: No signs and/or symptoms reported regarding the musculoskeletal system. 11:30 Reassessment: No changes from previously documented assessment. Patient and/or family jl7 updated on plan of care and expected duration. Pain level reassessed. Patient is alert, oriented x 3, equal unlabored respirations, skin warm/dry/pink. 12:30 Reassessment: Patient and/or family updated on plan of care and expected duration. Pain jl7 level reassessed. Patient is alert, oriented x 3, equal unlabored respirations, skin warm/dry/pink. Patient denies pain at this time. 13:30 Reassessment: Phone report given to Mercedes at receiving facility. Pt and family updated jl7 on POC. 14:20 Reassessment: Patient appears in no apparent distress at this time. No changes from jl7 previously documented assessment. [facility] at bedside to transfer pt. Vital Signs: 10:15 BP 83 / 70; Pulse 82; Resp 15; Temp 97.2; Pulse Ox 100% on R/A; Weight 72.57 kg; Height aj 5 ft. 3 in. (160.02 cm); 10:30 BP 98 / 81; Pulse 96; Resp 16 S; Pulse Ox 97% on R/A; Pain 0/10; jl7 11:13 BP 101 / 86; Pulse 98; Resp 14 S; Pulse Ox 97% on R/A; jl7 12:03 BP 106 / 72; Pulse 96; Resp 16 S; Pulse Ox 98% on R/A; Pain 0/10; jl7 13:11 BP 95 / 72; Pulse 109; Resp 14 S; Pulse Ox 100% on R/A; jl7 13:46 BP 100 / 87; Pulse 111; Resp 16; Pulse Ox 100% ; jl7 10:15 Body Mass Index 28.34 (72.57 kg, 160.02 cm) ED Course: 09:48 Patient arrived in ED. hj 10:13 Triage completed. aj 10:15 Arm band placed on left wrist. Patient placed in an exam room. aj 10:20 Patient has correct armband on for positive identification. Placed in gown. Bed in low jl7 position. Call light in reach. Side rails up X2. laboratory monitor on. Pulse ox on. NIBP on. 10:22 Yury Hinton MD is Attending Physician. enrike 10:45 Missed attempt(s): 22 gauge in right antecubital area. jb1 10:45 Missed attempt(s): 22 gauge in left antecubital area. jb1 11:00 Missed attempt(s): 22 gauge in left hand. Bleeding controlled, band aid applied, jl7 catheter tip intact. 11:08 Tasia Fitch RN is Primary Nurse. jl7 11:15 Initial lab(s) drawn, by ED staff, sent to lab. Inserted saline lock: 18 gauge in left jl7 EJ, using aseptic technique. Blood collected. Inserted by Dr. Hinton. 11:30 Straight cath inserted, using sterile technique, 16 Fr. Specimen obtained. Returned jl7 cloudy urine. Patient tolerated poorly. 14:20 No provider procedures requiring assistance completed. Patient transferred, IV remains jl7 in place. intact, No redness/swelling at site. Administered Medications: 11:15 Drug: Pepcid 20 mg Route: IVP; Site: left jugular; jl7 11:45 Follow up: Response: No adverse reaction jl7 11:16 Drug: Cipro 400 mg Volume: 200 ml; Route: IVPB; Infused Over: 60 mins; Site: left jl7 jugular; 12:16 Follow up: Response: No adverse reaction; IV Status: Completed infusion jl7 11:17 Drug: NS 0.9% 250 ml Route: IV; Rate: bolus; Site: left jugular; 11:40 Follow up: IV Status: Completed infusion ch 11:39 Drug: Flagyl 500 mg Volume: 100 ml; Route: IVPB; Rate: 200 ml/hr; Infused Over: 30 jl7 mins; Site: left jugular; 12:09 Follow up: Response: No adverse reaction; IV Status: Completed infusion jl7 13:13 Drug: ProTONIX 40 mg Route: IVP; Site: left jugular; jl7 13:15 Follow up: Response: No adverse reaction jl7 Outcome: 12:29 ER care complete, transfer ordered by MD. calvert 14:36 Transferred by ground EMS to [facility], Transfer form completed. jl7 X-rays sent w/ patient. 14:36 Condition: stable 14:36 Discharge instructions given to patient, family, Instructed on the need for transfer, Demonstrated understanding of instructions. 14:36 Patient left the ED. jl7 Addendum: 12/22/2017 09:41 Addendum: Culture Results: Positive urine culture. Phone call Attempt #1 faxed culture s s results to [facility] ATTN Dr. Bobo. Signatures: Nicolas Sarmiento Christina, RN Danitza Omalley ch, RN RN aj Anderson, Corey, MD MD cha Smirch, Shelby, RN RN ss Joaquin, Henry, RN RN hj Leal, Jahala, RN RN jl7
--- NOTE | 2017-12-18 12:36 | EDPHYS ---
Physician Documentation [facility] Name: Dilia Perez Age: 77 yrs Sex: Female : 1940 Arrival Date: 12/18/2017 Time: 09:48 Bed 4 Private MD: ED Physician Yury Hinton HPI: 12/18 11:12 This 77 yrs old Female presents to ER via Wheelchair with complaints of Rectal enrike Bleeding. 11:12 The patient presents to the emergency department with bleeding from the rectum/anus, enrike that is moderate. Onset: The symptoms/episode began/occurred 3 day(s) ago. Context: the patient has no known special context relating to the rectal area complaint(s). Modifying factors: The symptoms are alleviated by nothing, The symptoms are aggravated by bowel movement, nothing. Associate signs and symptoms: The patient has no apparent associated signs or symptoms. The patient has not experienced similar symptoms in the past. Historical: - Allergies: 10:15 No Known Allergies; aj - Home Meds: 10:15 Eliquis 2.5 mg Oral tab [Active]; pantoprazole 40 mg oral TbEC 1 tab once daily aj [Active]; Lasix 40 mg Oral tab [Active]; hydroxyzine HCl 25 mg Oral tab 1 tab 3 times per day [Active]; metoprolol tartrate 25 mg Oral tab 1 tab once daily [Active]; - PMHx: 10:15 Dialysis T-T-S; ESRD; HD T-TH-Sat; Hypertension; aj - PSHx: 10:15 None; aj - Immunization history:: Adult Immunizations up to date. - Social history:: Smoking status: Patient/guardian denies using tobacco. - Ebola Screening: : Patient negative for fever greater than or equal to 101.5 degrees Fahrenheit, and additional compatible Ebola Virus Disease symptoms Patient denies exposure to infectious person Patient denies travel to an Ebola-affected area in the 21 days before illness onset No symptoms or risks identified at this time. - Family history:: not pertinent. ROS: 11:12 Constitutional: Negative for fever, chills, and weight loss, Eyes: Negative for injury, enrike pain, redness, and discharge, ENT: Negative for injury, pain, and discharge, Neck: Negative for injury, pain, and swelling, Cardiovascular: Negative for chest pain, palpitations, and edema, Respiratory: Negative for shortness of breath, cough, wheezing, and pleuritic chest pain, Back: Negative for injury and pain, : Negative for injury, bleeding, discharge, and swelling, MS/Extremity: Negative for injury and deformity, Skin: Negative for injury, rash, and discoloration, Neuro: Negative for headache, weakness, numbness, tingling, and seizure, Psych: Negative for depression, anxiety, suicide ideation, homicidal ideation, and hallucinations, Allergy/Immunology: Negative for hives, rash, and allergies, Endocrine: Negative for neck swelling, polydipsia, polyuria, polyphagia, and marked weight changes, Hematologic/Lymphatic: Negative for swollen nodes, abnormal bleeding, and unusual bruising. 11:12 Abdomen/GI: Positive for abdominal pain, rectal bleeding. Exam: 11:12 Constitutional: This is a well developed, well nourished patient who is awake, alert, enrike and in no acute distress. Head/Face: Normocephalic, atraumatic. Eyes: Pupils equal round and reactive to light, extra-ocular motions intact. Lids and lashes normal. Conjunctiva and sclera are non-icteric and not injected. Cornea within normal limits. Periorbital areas with no swelling, redness, or edema. ENT: Nares patent. No nasal discharge, no septal abnormalities noted. Tympanic membranes are normal and external auditory canals are clear. Oropharynx with no redness, swelling, or masses, exudates, or evidence of obstruction, uvula midline. Mucous membranes moist. Neck: Trachea midline, no thyromegaly or masses palpated, and no cervical lymphadenopathy. Supple, full range of motion without nuchal rigidity, or vertebral point tenderness. No Meningismus. Chest/axilla: Normal chest wall appearance and motion. Nontender with no deformity. No lesions are appreciated. Respiratory: Lungs have equal breath sounds bilaterally, clear to auscultation and percussion. No rales, rhonchi or wheezes noted. No increased work of breathing, no retractions or nasal flaring. Abdomen/GI: Soft, non-tender, with normal bowel sounds. No distension or tympany. No guarding or rebound. No evidence of tenderness throughout. Back: No spinal tenderness. No costovertebral tenderness. Full range of motion. Female : Normal external genitalia. Skin: Warm, dry with normal turgor. Normal color with no rashes, no lesions, and no evidence of cellulitis. MS/ Extremity: Pulses equal, no cyanosis. Neurovascular intact. Full, normal range of motion. Neuro: Awake and alert, GCS 15, oriented to person, place, time, and situation. Cranial nerves II-XII grossly intact. Motor strength 5/5 in all extremities. Sensory grossly intact. Cerebellar exam normal. Normal gait. Psych: Awake, alert, with orientation to person, place and time. Behavior, mood, and affect are within normal limits. 11:12 Cardiovascular: JVD: is noted bilaterally, to 3 cm. 11:12 Abdomen/GI: Rectal exam: Stool: grossly bloody, guaiac positive, hemorrhoid(s), are not appreciated, mass, is not appreciated, Liver: no appreciated palpable abnormalities. Vital Signs: 10:15 BP 83 / 70; Pulse 82; Resp 15; Temp 97.2; Pulse Ox 100% on R/A; Weight 72.57 kg; Height aj 5 ft. 3 in. (160.02 cm); 10:30 BP 98 / 81; Pulse 96; Resp 16 S; Pulse Ox 97% on R/A; Pain 0/10; jl7 11:13 BP 101 / 86; Pulse 98; Resp 14 S; Pulse Ox 97% on R/A; jl7 12:03 BP 106 / 72; Pulse 96; Resp 16 S; Pulse Ox 98% on R/A; Pain 0/10; jl7 13:11 BP 95 / 72; Pulse 109; Resp 14 S; Pulse Ox 100% on R/A; jl7 13:46 BP 100 / 87; Pulse 111; Resp 16; Pulse Ox 100% ; jl7 10:15 Body Mass Index 28.34 (72.57 kg, 160.02 cm) Procedures: 11:04 Peripheral line: by aseptic technique a peripheral line was placed in the left external enrike jugular vein. MDM: 10:22 Patient medically screened. [facility] 11:04 Data reviewed: vital signs, nurses notes, lab test result(s), EKG, radiologic studies. [facility] 12/18 10:36 Order name: Type And Screen [facility] 12/18 12:35 Order name: CBC with Automated Diff; Complete Time: 12:47 [facility] 12/18 12:35 Order name: Protime (+INR); Complete Time: 12:47 [facility] 12/18 10:36 Order name: XRAY Chest (1 view) [facility] 12/18 10:36 Order name: CT Abd/Pelvis - Without Cont [facility] 12/18 12:35 Order name: PTT, Activated Partial Thromb; Complete Time: 12:47 [facility] 12/18 12:35 Order name: Type and Screen; Complete Time: 12:47 [facility] 12/18 12:35 Order name: RAD; Complete Time: 12:47 [facility] 12/18 12:35 Order name: CBC Smear Scan; Complete Time: 12:47 [facility] 12/18 12:54 Order name: Basic Metabolic Panel [facility] 12/18 12:54 Order name: Liver (Hepatic) Function [facility] 12/18 12:54 Order name: Creatine Phosphokinase [facility] 12/18 12:54 Order name: CKMB Creatine Kinase MB [facility] 12/18 12:54 Order name: Troponin (Emerg Dept Use Only) [facility] 12/18 12:54 Order name: NT PRO-BNP [facility] 12/18 12:54 Order name: Magnesium [facility] 12/18 13:04 Order name: CT [facility] 12/18 13:53 Order name: Urine Culture [facility] 12/18 13:59 Order name: Urine Dipstick-Ancillary [facility] 12/18 10:36 Order name: EKG; Complete Time: 13:31 [facility] 12/18 10:36 Order name: Cardiac monitoring; Complete Time: 11: [facility] 12/18 10:36 Order name: EKG - Nurse/Tech; Complete Time: 11:09 [facility] 12/18 10:36 Order name: IV Saline Lock; Complete Time: 11: [facility] 12/18 10:36 Order name: Labs collected and sent; Complete Time: 11: [facility] 12/18 10:36 Order name: O2 Per Protocol; Complete Time: 11: [facility] 12/18 10:36 Order name: O2 Sat Monitoring; Complete Time: 11: [facility] 12/18 10:36 Order name: Urine Dipstick-Ancillary (obtain specimen); Complete Time: 11:39 [facility] 12/18 13:53 Order name: EKG Electrocardiogram EDMS Administered Medications: 11:15 Drug: Pepcid 20 mg Route: IVP; Site: left jugular; jl7 11:45 Follow up: Response: No adverse reaction jl7 11:16 Drug: Cipro 400 mg Volume: 200 ml; Route: IVPB; Infused Over: 60 mins; Site: left jl7 jugular; 12:16 Follow up: Response: No adverse reaction; IV Status: Completed infusion 7 11:17 Drug: NS 0.9% 250 ml Route: IV; Rate: bolus; Site: left jugular; 11:40 Follow up: IV Status: Completed infusion 11:39 Drug: Flagyl 500 mg Volume: 100 ml; Route: IVPB; Rate: 200 ml/hr; Infused Over: 30 jl7 mins; Site: left jugular; 12:09 Follow up: Response: No adverse reaction; IV Status: Completed infusion [facility] 13:13 Drug: ProTONIX 40 mg Route: IVP; Site: left jugular; [facility] 13:15 Follow up: Response: No adverse reaction [facility] Disposition: 12/18/17 12:29 Transfer ordered to [facility]. Diagnosis are End stage renal disease, Anemia, unspecified, Gastrointestinal hemorrhage, unspecified, Cardiomegaly, Hypotension, Atrial fibrillation and flutter. - Reason for transfer: Higher level of care. - Accepting physician is to [facility], gi bleed, esrd on hd. - Condition is Fair. - Problem is new. - Symptoms have improved. Signatures: Dispatcher [employer] EDMaría Elena Cm RN RN ch Myers, Amanda, RN RN aj Anderson, Corey, MD MD cha Leal, Jahala, RN RN jl7 Corrections: (The following items were deleted from the chart) 14:36 12:29 12/18/2017 12:29 Transfer ordered to [facility]. Diagnosis is jl7 End stage renal disease; Anemia, unspecified; Gastrointestinal hemorrhage, unspecified; Cardiomegaly; Hypotension; Atrial fibrillation and flutter. Reason for transfer: Higher level of care. Accepting physician is to [facility], gi bleed, esrd on hd. Condition is Fair. Problem is new. Symptoms have improved. enrike
[2017-12-18] MEDS ORDERED: PANTOPRAZOLE 40 MG INJ ONE (13:03)
--- NOTE | 2017-12-18 13:03 | RAD REPORT ---
EXAM DESCRIPTION: CT - Abdomen Pelvis Wo Contrast - 12/18/2017 12:45 pm CLINICAL HISTORY: Abdominal pain hematochezia COMPARISON: November 2017 TECHNIQUE: Computed axial tomography of the abdomen and pelvis was obtained. IV was not requested. O ral contrast was given. Coronal reconstructions performed. All CT scans are performed using dose optimization technique as appropriate and may include automated exposure control or mA/KV adjustment according to patient size. FINDINGS: The evaluation of solid organs and vessels is limited secondary to the lack of contrast a dministration. The heart is enlarged Small right and tiny left pleural effusions are present. The liver, spleen, pancreas, and adrenal appear grossly normal. The kidneys are small. Small cysts ar e suspected. The appendix is normal. There is no evidence of diverticulitis. Diffuse edema is present throughout the subcutaneous tissues. Left renal arterial aneurysm is stable. The wall of the rectosigmoid colon is mildly to moderately thickened. Air within the bladder probably secondary to recent instrumentation A left inguinal hernia is present IMPRESSION: Mild to moderate thickening of the wall of the rectosigmoid colon probably indicating in flammation Air within the bladder probably secondary to recent instrumentation. Infection can also result in thi s appearance should be correlated clinically
[2017-12-18 14:42] VITALS: TEMP 97.2
[2017-12-18 14:45] LABS: Urine Blood 3+ (NEG); Urine Glucose NEGATIVE (NEG); Urine Protein 2+ (NEG)
[2017-12-18 14:47] VITALS: BP 100/87; O2SAT 100
--- NOTE | 2017-12-19 12:13 | EKG ---
Test Date: 2017-12-18 Test Time: 10:27:21 [employer]: MALKA MEASUREMENT RESULTS: Intervals: Rate: 113 MS: QRSD: 92 QT: 330 QTc: 452 [place]: P: MS: QRS: 190 T: 267 INTERPRETIVE STATEMENTS: Atrial fibrillation with rapid ventricular response with premature ventricular or aberrantly conducted complexes Right superior axis deviation Low voltage QRS Nonspecific T wave abnormality, probably digitalis effect Abnormal ECG Compared to ECG 11/26/2017 16:37:52 Right superior axis now present T-wave abnormality now present Right-axis deviation no longer present Electronically Signed On 12-19-17 12:08:00 CDT by Michael Spain
== END 2017-12-18 14:36 | disposition short-term general hospital (02) ==
LOC: ER 09:35
PROC: 05HQ33Z Insertion of Infusion Device into Left External Jugular Vein, Percutaneous Approach (ICD-10-PCS; principal; 2017-12-18)
DX: I12.0 Hypertensive chronic kidney disease with stage 5 chronic kidney disease or end stage renal disease (principal); N18.6 End stage renal disease; I95.9 Hypotension, unspecified; D64.9 Anemia, unspecified; I51.7 Cardiomegaly; I48.91 Unspecified atrial fibrillation; I48.92 Unspecified atrial flutter; Z79.01 Long term (current) use of anticoagulants; Z99.2 Dependence on renal dialysis
CPT/HCPCS: 36415; 36569; 51702; 71045; 74176; 80048; 80076; 81003; 82550; 82553; 83735; 83880; 84484; 85025; 85610; 85730; 86850; 86900; 86901; 87077; 87086; 87088; 87186; 93005; 96365; 96368; 96375; 99285; C9113; J0744; 96367